=== PATIENT | male | born 1970 | race Caucasian/White ===

== ENCOUNTER 2023-12-03 07:33 | Outpatient (OUT) | payer BC, SELFPAY ==
--- NOTE | 2023-12-03 10:07 | P.STRESS_ITS ---
Stress Test Stress Test Requesting physician: ELPIDIO GOMEZ Procedure: Exercise stress test General Information: Reason for Stress Test: Fatigue Cardiac History and Risk Factors: Father had MA, mother had afib Resting 12 - Lead Electrocardiogram: Rate & rhythm: Normal sinus at a rate of 77. [place]: Normal T-waves: Flattened in aVL ST-segments: Normal Stress Test: Protocol: Bill protocol was followed. Exercise capacity: Good exercise capacity. Total exercise time of 7 minutes 35 seconds reached Bill stage 3 at 3.4MPH, 14% grade, & 10.1 METs. Blood pressure: Initial: 124/68, Maximum: 160/82, Recovery: 122/76 Rate & rhythm: Patient remained in normal rhythm during the exercise and recovery portions of the study.? The maximum heart rate was 146, which was 88% of the maximum predicted heart rate 165. ST-segments & T-waves: At peak exercise and into the initial recovery period, there was up to 1mm ST segment depression in lead V3 and ~0.5mm in V4 Patient response/symptoms: There were no symptoms similar to the chief complaint. Interpretation: This is an abnormal exercise stress test based on ST segment depression in leads V3 & V4. No reproducible symptoms. Dumont Treadmill Score is 2.6 which is a moderate risk. Clinical correlation required.
== END 2023-12-03 07:34 | disposition home or self-care (01) ==
LOC: CARD 07:33
PROVIDERS: PCP Family Medicine; Visit Provider Family Medicine
DX: R53.83 Other fatigue (principal); Z82.49 Family history of ischemic heart disease and other diseases of the circulatory system
CPT/HCPCS: 93017

== ENCOUNTER 2024-10-12 08:25 | Outpatient (OUT) | payer BC, SELFPAY ==
--- NOTE | 2024-10-12 | XR_ITS ---
The [address] [address] Patient Name: NICHOLE BARILLAS MRN: [id number] date: 1970 Sex: M Assigned Patient Location: Current Patient Location: Accession/Order Number: [id number] Exam Date: 10/12/2024 08:26 Report Date: 10/13/2024 06:58 At the request of: AGNES CABRERA Procedure: XR shoulder LT min 2V PROCEDURE: XR shoulder LT min 2V HISTORY: LEFT SHOULDER PAIN COMPARISON: None. FINDINGS: BONES:No fracture, acute abnormality, bone lesion, or significant arthropathy. SOFT TISSUES:No visible soft tissue swelling. EFFUSION:None visible. OTHER: Negative. XR/XR shoulder LT min 2V IMPRESSION: 1. No acute abnormality or significant degenerative changes. 2. No appreciable bone lesion. Electronically authenticated by: AGNES GERONIMO Date: 10/13/2024 06:58
--- OUTSIDE RECORDS SUMMARY | 2024-10-12 08:35 | XMS_ITS | CCD ---
Author Organization [facility] Care Team Providers Care Winery Cellar Hand Name Role Phone ERYN, DR ABBI Camarena Admitting Unavailable DEMPSEY, DR ABBI Camarena Attending Unavailable DEMPSEY, DR ABBI Camarena Consulting Unavailable DEMPSEY, DR ABBI Camarena Primary Care Unavailable DEMPSEY, DR ABBI Camarena Consulting Unavailable DEMPSEY, DR ABBI Camarena Admitting Unavailable DEMPSEY, DR ABBI Camarena Attending Unavailable DEMPSEY, DR ABBI Camarena Primary Care Unavailable NEFCYKITA Consulting Unavailable DEMPSEY, DR ABBI Camarena Admitting Unavailable DEMPSEY, DR ABBI Camarena Attending Unavailable DEMPSEY, DR ABBI Camarena Consulting Unavailable DEMPSEY, DR ABBI Camarena Primary Care Unavailable DEMPSEY, DR ABBI Camarena Primary Care Unavailable DEMPSEY, DR ABBI Camarena Attending Unavailable DEMPSEY, DR ABBI Camarena Admitting Unavailable DEMPSEY, DR ABBI Camarena Consulting Unavailable WEST, DR BEN Vazquez Consulting Unavailable DEMPSEY, DR ABBI Camarena Primary Care Unavailable DEMPSEY, DR ABBI Camarena Attending Unavailable DEMPSEY, DR ABBI Camarena Admitting Unavailable DEMPSEY, DR ABBI Camarena Consulting Unavailable ZIEBER, DR LORNE Patel Consulting Unavailable DEMPSEY, DR ABBI Camarena Primary Care Unavailable VALDEMAR KING Admitting Unavailable Lorne Go Consulting Unavailable VALDEMAR KING Attending Unavailable VALDEMAR KING Consulting Unavailable DEMPSEY, DR ABBI Camarena Attending Unavailable DEMPSEY, DR ABBI Camarena Admitting Unavailable DEMPSEY, DR ABBI Camarena Consulting Unavailable DEMPSEY, DR ABBI Camarena Primary Care Unavailable DEMPSEY, DR ABBI Camarena Admitting Unavailable DEMPSEY, DR ABBI Camarena Attending Unavailable DEMPSEY, DR ABBI Camarena Consulting Unavailable ERYN, DR ABBI Camarena Primary Care Unavailable MD Abbi Dempsey Primary Care Provider MD Ortega Cabrera Attending Provider [phone] Ortega Cabrera Attending Unavailable Ortega Cabrera Admitting Unavailable Abbi Dempsey Primary Care Unavailable Zach Hannah. Primary Care Physician [phone] Nina Lerma Unavailable MICHELLE POOL Attending Unavailable MICHELLE POOL Attending Unavailable Zach Hannah Attending Unavailable NONE, XXXX Referring Unavailable Miguel Wells Admitting UnavailMiguel Boateng Attending Unavaila Zach Montano Referring Unavailable Miguel Wells Attending Miguel Warren Admitting UnavailMiguel Boateng Consulting Miguel Warren Attending Miguel Warren Referring UnavailMD Miguel Boateng Consulting Unava ilable Miguel Wells Consulting Unavaila Zach Montano Admitting Unavailable Zach Hannah Attending Unavailable Zach Hannah Attending Unavailable Zach Hannah Attending Unavailable Zach Hannah Attending Unavailable Zach Hannah Attending Unavailable Zach Hannah Admitting Unavailable Zach Hannah Attending Unavailable Medications Current Medications Medication Drug Class(es) Dates Sig (Normalized) Sig (Original) ProAir (6 sources) beta2-Adrenergic Agonist Start: 03-25-2023 take 2 puff(s) by inhalation every four hours ProAir HFA 2 puff(s), Inhalation, q4hr, Refill(s) 0 Start Date: 03/25/23 Status: Ordered diclofenac potassium 25 mg oral capsule (1 source) Nonsteroidal Anti-inflammatory Drug Start: 08-03-2024 take 1 capsule by mouth four times daily as needed for pain diclofenac potassium 25 mg oral capsule 25 mg = 1 cap(s), Oral, QID, PRN for pain, # 40 cap(s), Refills(s) 0, Pharmacy: [facility], 193, cm, 08/03/24 7:21:00 EDT, Height/Length Dosing, 126, kg, 08/03/24 7:21:00 EDT, Weight Dosing Start Date: 08/03/24 Status: Ordered Dosakap (3 sources) Start: 10-24-2023 Dosakap Dosakap, See Instructions, 90 EA, 0, Take one a day, [facility], Supply, 193, cm, 10/24/23 7:31:00 EST, Height/Length Dosing, 124.9, kg, 10/24/23 7:31:00 EST, Weight Dosing Start Date: 10/24/23 Status: Ordered fluticasone propionate 0.093 mg/actuat metered dose nasal spray (9 sources) Corticosteroid Start: 04-25-2023 take 1 spray(s) nasal route twice daily Xhance 93 mcg/inh nasal spray 1 spray(s), Nasal, BID, Refill(s) 0, each nostril Start Date: 04/25/23 Status: Ordered Start: 03-25-2023 fluticasone Na cheyenne 0.05 mg/inh Sargeant 2 spray(s), Nasal, Daily, 16 gram, Refill(s) 0, each nostril Start Date: 03/25/23 Status: Ordered Start: 03-08-2023 Fluticasone Pr opionate (Xhance) 93 mcg/actuation aerosol breath activated Active 1 SPRAY INTRANASAL Twice daily March 08, 2023 12:00am Start: 02-23-2022 End: 03-08-2023 Fluticasone Propionate Disco ntinued 2 SPRAY INTRANASAL Twice daily February 23, 2022 12:00am March 08, 2023 10:05am take 1 spray(s) nasa l route once daily Fluticasone Propionate 50 MCG/ACT 1 spray in each nostril Nasally Once a day Active Completed/Discontinued Medications Medication Drug Class(es) Dates Sig (Normalized) Sig (Original) triamcinolone acetonide 40 mg/ml injectable suspension (2 sources) Corticosteroid Start: 12-10-2023 Kenalog-40 Nov, 20 mg Problems Active Problems Problem Classification Problem Date Documented Da te Episodic/Chronic Abdominal hernia (6 sources) Hiatal hernia 03-25-2023 Episodic Asthma (6 sources) Asthma 03-25-2023 Chronic Chronic obstructive pulmonary disease and bronchiectasis (1 source) Bronchitis, not specified as acute or chronic; Translations: [BRONCHITIS NOT SPEC ACUTE/CHRON] Onset: 07-27-2022 Episodic Esophageal disorders (8 sources) Lower esophageal ring; Translations: [Esophageal obstruction] 02-23-2022 Chronic Malaise and fatigue (7 sources) Other fatigue; Translations: [Fatigue] Onset: 02-14-2022 03-25-2023 Episodic Nutritional deficiencies (4 sources) Vitamin D deficiency 04-25-2023 Chronic Other connective tissue disease (1 source) Trigger finger, left middle finger Episodic Other connective tissue disease (1 source) Trigger finger, left ring finger Episodic Other connective tissue disease (3 sources) Prepatellar bursitis 01-27-2024 Episodic Other endocrine disorders (3 sources) Male hypogonadism 03-25-2023 Chronic Other gastrointestinal disorders (1 source) Dysphagia; Translations: [Dysphagia, unspecified] Episodic Other lower respiratory disease (4 sources) Shortness of breath; Translations: [SHORTNESS OF BREATH] Onset: 06-19-2022 Episodic Other lower respiratory disease (1 source) Other disorders of lung; Translations: [OTHER DISORDERS OF LUNG] Onset: 07-27-2022 Episodic Other lower respiratory disease (1 source) Postviral cough 10-24-2023 Episodic Other non-traumatic joint disorders (4 sources) Polyarthritis, unspecified; Translations: [POLYARTHRITIS UNSPECIFIED] Onset: 02-09-2022 Chronic Other non-traumatic joint disorders (6 sources) Polyarthropathy 03-25-2023 Chronic Other screening for suspected conditions (not mental disorders or infectious disease) (2 sources) Abnormal results of cardiovascular function studies; Translations: [Abnormal result of other cardiovascular function study] Episodic Other upper respiratory disease (6 sources) Polyp of nasal cavity and/or nasal sinus 03-25-2023 Episodic Other upper respiratory infections (5 sources) Chronic pansinusitis; Translations: [Chronic sinusitis, unspecified] Onset: 09-14-2022 Chronic Residual codes; unclassified (5 sources) Obstructive sleep apnea syndrome; Translations: [Obstructive sleep apnea (adult) (pediatric)] 10-24-2023 Chronic Residual codes; unclassified (4 sources) Insomnia 04-25-2023 Episodic Spondylosis; intervertebral disc disorders; other back problems (6 sources) Nerve root disorder; Translations: [Radiculopathy, site unspecified] 03-25-2023 Episodic Unclassified (4 sources) COUGH, UNSPECIFIED; Translations: [COUGH, UNSPECIFIED] Onset: 06-19-2022 Unclassified (3 sources) CONTACT W/AND (SUSP) EXPOS COVID-19; Translations: [CONTACT W/AND (SUSP) EXPOS COVID-19] Onset: 07-19-2022 Unclassified (6 sources) Pain of knee region 03-25-2023 Unclassified (2 sources) Patient encounter status 08-03-2024 Viral infection (1 source) COVID-19; Translations: [COVID-19] Onset: 07-27-2022 Past or Other Problems Problem Classification Problem Date Documented Da te Episodic/Chronic Other lower respiratory disease (1 source) Wheezing; Translations: [WHEEZING] Onset: 06-19-2022 Episodic Unclassified (1 source) COUGH, UNSPECIFIED; Translations: [COUGH, UNSPECIFIED] Onset: 09-11-2022 Unclassified (1 source) CONTACT W/AND (SUSP) EXPOS COVID-19; Translations: [CONTACT W/AND (SUSP) EXPOS COVID-19] Onset: 07-20-2022 Results Test Name Value Interpretation Reference Range Facility Ambulatory Visit Summaryon 0 08-03-2024 Ambulatory Visit Summary Ambulatory Visit Summary NICHOLE BARILLAS :1970 Visit Date:08/03/2024 Ambulatory Visit Instructions Your Diagnosis Physical exam Knee pain, right Gastroesophageal reflux disease without esophagitis Vitamin D deficiency Prostate cancer screening Your Care Team Attending Physician - Zach Hannah MD Primary Care Physician - Zach Hannah MD This Is Your Medications List Non-Formulary Medication (Dosakap) albuterol (ProAir HFA) fluticasone nasal (Xhance 93 mcg/inh nasal spray) Procedures Performed Colonoscopy, EGD - Esophagogastroduodeno scopy, Right hand, Sinus. Discharge Vitals Temperature (Oral) 36.7 ?C Heart Rate (Peripheral) 74 Respiratory Rate 20 Blood Pressure 124/82 Height 193 cm Height 76 in Weight 126.0 kg Weight 277.2 lb BMI 33.83 Medications What How Much When Instructions Unchanged albuterol (ProAir HFA) 2 Puffs Inhalation Every 4 hours Unchanged fluticasone nasal (Xhance 93 mcg/ inh nasal spray) 1 Sprays Nasal Inhalation 2 times a day each nostril Unchanged Non-Formulary Medication (Dosakap) See instructions Take one a day Allergies No Known Allergies Problems Ongoing - Any problem that you are currently receiving treatment for. Asthma Fatigue Gastroesophageal reflux disease without esophagitis Hiatal hernia Insomnia due to stress Knee pain, right Nasal polyp ARYAN (obstructive sleep apnea) Physical exam Polyarthritis Prepatellar bursitis Prostate cancer screening Radiculopathy Vitamin D deficiency Patient Survey You may receive a survey via text or e-mail asking about your office visit. Please share your experience with us by completing your survey. We appreciate your feedback and thank you for choosing us for your care. Normal [facility] CBC w/ Auto Diffon 4 Basophils/100 WBC (Bld) 0.8 % Normal 0.0-2.0 [facility] Comment on above: Performed By: #### 2 [id number] #### [facility] [address] [place] [address] Basophils/Leukocytes Auto (Bld) [Pure # fraction] 0.0 E9/L Normal 0.0-0.2 [facility] Comment on above: Performed By: #### 2 [id number] #### [facility] [address] [place] [address] Eosinophils (Bld) [#/Vol] 0.3 E9/L Normal 0.0-0.5 [facility] Comment on above: Performed By: #### 2 [id number] #### [facility] [address] [place] [address] Eosinophils/100 WBC (Bld) 6.7 % Normal 0.0-8.0 [facility] Comment on above: Performed By: #### 2 [id number] #### [facility] [address] [place] [address] Erythrocyte distribution width (RBC) [Ratio] 13.2 % Normal 10.9-14.2 [facility] Comment on above: Performed By: #### 2 [id number] #### [facility] [address] [place] [address] Hematocrit (Bld) [Volume fraction] 44.7 % Normal 37.7-49.0 [facility] Comment on above: Performed By: #### 2 [id number] #### [facility] [address] [place] [address] Hemoglobin (Bld) [Mass/Vol] 14.7 g/dL Normal 13.5-17.5 [facility] Comment on above: Performed By: #### 2 [id number] #### [facility] [address] [place] [address] Lymphocytes (Bld) [#/Vol] 1.8 E9/L Normal 1.0-4.0 [facility] Comment on above: Performed By: #### 2 [id number] #### [facility] [address] [place] [address] Lymphocytes/100 WBC (Bld) 38.6 % Normal 14.0-50.0 [facility] Comment on above: Performed By: #### 2 [id number] #### [facility] [address] [place] [address] MCH (RBC) [Entitic mass] 29.8 pg Normal 27.0-34.0 [facility] Comment on above: Performed By: #### 2 [id number] #### [facility] [address] [place] [address] MCHC (RBC) [Mass/Vol] 32.9 g/dL Normal 31.4-36.0 [facility] Comment on above: Performed By: #### 2 [id number] #### [facility] [address] [place] [address] MCV (RBC) [Entitic vol] 90.6 fL Normal 80.0-100.0 [facility] Comment on above: Performed By: #### 2 [id number] #### [facility] [address] [place] [address] Monocytes (Bld) [#/Vol] 0.4 E9/L Normal 0.2-1.0 [facility] Comment on above: Performed By: #### 2 [id number] #### [facility] [address] [place] [address] Neutrophils (Bld) [#/Vol] 2.0 E9/L Normal 2.0-7.5 [facility] Comment on above: Performed By: #### 2 [id number] #### [facility] [address] [place] [address] Neutrophils/100 WBC (Bld) 44.3 % Normal 36.0-75.0 [facility] Comment on above: Performed By: #### 2 [id number] #### [facility] [address] [place] [address] Platelet mean volume (Bld) [Entitic vol] 9.7 fL Normal 6.4-10.8 [facility] Comment on above: Performed By: #### 2 [id number] #### [facility] [address] [place] [address] Platelets (Bld) [#/Vol] 200.0 E9/L Normal 150.0-500.0 [facility] Comment on above: Performed By: #### 2 [id number] #### [facility] [address] [place] [address] RBC (Bld) [#/Vol] 4.9 E12/L Normal 4.3-5.9 [facility] Comment on above: Performed By: #### 2 [id number] #### [facility] [address] [place] [address] WBC corrected for nucl RBC Auto (Bld) [#/Vol] 4.6 E9/L Normal 4.0-11.0 [facility] Comment on above: Performed By: #### 2 [id number] #### [facility] [address] [place] [address] CHEMISTRYOrdered By: SYSTEM SYSTEM on 08-03-2024 Albumin [Mass/Vol] 4.1 g/dL Normal 3.3 - 5.0 gm/dL [facility] Albumin/Globulin [Mass ratio] 1.2 {ratio} Normal 1.1 - 2.2 [facility] ALP [Catalytic activity/Vol] 49 [iU]/d Normal 21 - 98 Int._Unit/L [facility] ALT No additional P-5'-P [Catalytic activity/Vol] 15 [iU]/d Normal 6 - 46 Int._Unit/L [facility] Anion gap [Moles/Vol] 8 mmol/L Normal 6 - 16 mEq/L R [facility] AST [Catalytic activity/Vol] 14 [iU]/d Normal 5 - 43 Int._Unit/L [facility] Bilirubin [Mass/Vol] 0.5 mg/dL Normal 0.0 - 1 .1 mg/dL [facility] Calcium [Mass/Vol] 9.3 mg/dL Normal 8.9 - 11. 1 mg/dL [facility] Chloride [Moles/Vol] 105 mmol/L Normal 101 - 1 11 mmol/L [facility] Cholesterol [Mass/Vol] 170 mg/dL Normal 120 - 200 mg/dL [facility] Cholesterol in HDL [Mass/Vol] 39 mg/dL Invalid Interpretation Code [facility] Comment on above: Result Comment: '>= 60 LOW RISK' '<= 40 HIGH RISK' Cholesterol in LDL [Mass/Vol] 128 mg/dL Normal <=129mg/dL [facility] Cholesterol in VLDL [Mass/Vol] 23 mg/dL Normal 7 - 40 mg/dL [facility] CO2 [Moles/Vol] 30 mmol/L Normal 21 - 31 mmol/L [facility] Creatinine [Mass/Vol] 0.9 mg/dL Normal 0.5 - 1.3 mg/dL [facility] eGFR 100 mL/min/1.73 m2 Normal >=59mL/mi n/1 .73 m2 [facility] Globulin (S) [Mass/Vol] 3.3 g/dL Normal 1.4 - 4.0 gm/dL [facility] Glucose [Mass/Vol] 103 mg/dL Normal 55 - 199 mg/dL [facility] Potassium [Moles/Vol] 4.3 mmol/L Normal 3.5 - 5.3 mmol/L [facility] Prostate specific Ag [Mass/Vol] 0.6 ng/mL Normal 0.1 - 3.5 ng/mL [facility] Comment on above: Interpretive Data: T he concentration of PSA determined by different manufacturers can vary due to differences in assay methods and reagent specificity. Values obtained from different assay methods cannot be used interchangeably. The methodology used for this result was chemiluminescence using [employer]'s Access [employer] PSA reagent. Protein [Mass/Vol] 7.4 g/dL Normal 6.0 - 7.8 gm/dL [facility] Sodium [Moles/Vol] 139 mmol/L Normal 135 - 145 mmol/L [facility] Triglyceride [Mass/Vol] 113 mg/dL Normal <=149mg/dL [facility] Urea nitrogen [Mass/Vol] 11 mg/dL Normal 5 - 21 mg/dL [facility] Urea nitrogen/Creatinine [Mass ratio] 12 mg/mg Normal 10 - 20 [facility] CMPon 08-03-2024 Albumin [Mass/Vol] 4.1 g/dL Normal 3.3-5.0 [facility] Comment on above: Performed By: #### 2 [id number] #### [facility] [address] [place] [address] Albumin/Globulin (S) [Mass conc ratio] 1.2 Normal 1.1-2.2 [facility] Comment on above: Performed By: #### 2 [id number] #### [facility] [address] [place] [address] ALP [Catalytic activity/Vol] 49 Int._Unit/L Normal 21-98 [facility] Comment on above: Performed By: #### 2 [id number] #### [facility] [address] [place] [address] ALT No additional P-5'-P [Catalytic activity/Vol] 15 Int._Unit/L Normal 6-46 [facility] Comment on above: Performed By: #### 2 [id number] #### [facility] [address] [place] [address] Anion gap [Moles/Vol] 8 mmol/L Normal 6-16 [facility] Comment on above: Performed By: #### 2 [id number] #### [facility] [address] [place] [address] AST [Catalytic activity/Vol] 14 Int._Unit/L Normal 5-43 [facility] Comment on above: Performed By: #### 2 [id number] #### [facility] [address] [place] [address] Bilirubin [Mass/Vol] 0.5 mg/dL Normal 0.0-1.1 [facility] Comment on above: Performed By: #### 2 [id number] #### [facility] [address] [place] [address] Calcium [Mass/Vol] 9.3 mg/dL Normal 8.9-11.1 [facility] Comment on above: Performed By: #### 2 [id number] #### [facility] [address] [place] [address] Chloride [Moles/Vol] 105 mmol/L Normal 101-111 [facility] Comment on above: Performed By: #### 2 250305 #### [facility] [address] [place] [address] CO2 [Moles/Vol] 30 mmol/L Normal 21-31 [facility] Comment on above: Performed By: #### 2 [id number] #### [facility] [address] [place] [address] Creatinine [Mass/Vol] 0.9 mg/dL Normal 0.5-1.3 [facility] Comment on above: Performed By: #### 2 [id number] #### [facility] [address] [place] [address] Globulin (S) [Mass/Vol] 3.3 g/dL Normal 1.4-4.0 [facility] Comment on above: Performed By: #### 2 [id number] #### [facility] [address] [place] [address] Glucose [Mass/Vol] 103 mg/dL Normal 55-199 [facility] Comment on above: Performed By: #### 2 192503 #### [facility] [address] [place] [address] Potassium [Moles/Vol] 4.3 mmol/L Normal 3.5-5.3 [facility] Comment on above: Performed By: #### 2 [id number] #### [facility] [address] [place] [address] Protein [Mass/Vol] 7.4 g/dL Normal 6.0-7.8 [facility] Comment on above: Performed By: #### 2 [id number] #### [facility] [address] [place] [address] Sodium [Moles/Vol] 139 mmol/L Normal 135-145 [facility] Comment on above: Performed By: #### 2 [id number] #### [facility] [address] [place] [address] Urea nitrogen [Mass/Vol] 11 mg/dL Normal 5-21 [facility] Comment on above: Performed By: #### 2 299123 #### [facility] [address] [place] [address] Urea nitrogen/Creatinine [Mass ratio] 12 No Units Normal 10-20 [facility] Comment on above: Performed By: #### 2 [id number] #### [facility] [address] [place] [address] Family Medicine Office/Clini c Noteon 08-03-2024 Family Medicine Office/Clinic Note Family Medicine Office/Clinic Note HPI Staff Nichole (New) is a 54 year old male presenting for wellness PE and labs Health Maintenance: Colonoscopy: 2022 PSA: No qualifying data available. Last Labs: 03/26/23 question/concerns; Would like a rx for diclofenac had in past with Dr. Dempsey History of Present Illness - Here for CPE and labs. - NO issues today. - See staff HPI. Review of Systems PHQ Score Initial Depression Screen Score: 0 SCORE Physical Exam Vitals & Measurements T: 36.7 ?C(Oral) HR: 74(Peripheral) RR: 20 BP: 124/82 SpO2: 97% HT: 76 in HT: 193 cm WT: 126.0 kg WT: 277.2 lb BMI: 33.83 General: alert, no acute distress ENMT: oral mucosa moist, Cardiovascular: regular rate and rhythm, normal peripheral perfusion Respiratory: Lungs CTA, respirations non labored Extremities: no deformity, no trauma Neurological: oriented x 4, LOC appropriate for age, CN II-XII intact, motor strength equal & normal bilaterally, speech normal Abdomen: Soft, Nontender, Non-distended, + BS Assessment/Plan 1. Physical exam (Z00.00: Encounter for general adult medical examination without abnormal findings) Anticipatory guidance given. Discussed diet and exercise. Discussed immunizations. Ordered: CBC w/ Auto Diff Comprehensive Metabolic Panel Lipid Panel PSA Screen, Total 2. Knee pain, right (M25.561: Pain in right knee) Will add diclofenac. - Follow up PRN Ordered: CBC w/ Auto Diff Comprehensive Metabolic Panel Lipid Panel PSA Screen, Total 3. Gastroesophageal reflux disease without esophagitis (K21.9: Gastro-esophageal reflux disease without esophagitis) - PPI PRN Ordered: CBC w/ Auto Diff Comprehensive Metabolic Panel Lipid Panel PSA Screen, Total 4. Vitamin D deficiency (E55.9: Vitamin D deficiency, unspecified) - No issues at this time. Will recheck if fatigue presents again Ordered: CBC w/ Auto Diff Comprehensive Metabolic Panel Lipid Panel PSA Screen, Total 5. Prostate cancer screening (Z12.5: Encounter for screening for malignant neoplasm of prostate) - Ordered Ordered: CBC w/ Auto Diff Comprehensive Metabolic Panel Lipid Panel PSA Screen, Total Orders: diclofenac, 100 mg = 1 tab(s), Oral, Daily, PRN for arthritis, # 30 tab(s), Refills(s) 0, Pharmacy: [facility], 193, cm, 08/03/24 7:21:00 EDT, Height/Length Dosing, 126, kg, 08/03/24 7:21:00 EDT, Weight Dosing Follow-up No qualifying data available Patient Education Acute Knee Pain, Adult Problem List/Past Medical History Ongoing Asthma Fatigue Gastroesophageal reflux disease without esophagitis Hiatal hernia Insomnia due to stress Knee pain, right Nasal polyp ARYAN (obstructive sleep apnea) Physical exam Polyarthritis Prepatellar bursitis Prostate cancer screening Radiculopathy Vitamin D deficiency Historical No qualifying data Procedure/Surgical History Colonoscopy, EGD - Esophagogastroduodeno scopy, Right hand, Sinus. Medications diclofenac sodium 100 mg ER Tab, 100 mg= 1 tab(s), Oral, Daily, PRN ProAir HFA, 2 puff(s), Inhalation, q4hr Xhance 93 mcg/inh nasal spray, 1 spray(s), Nasal, BID Allergies No Known Allergies Social History Substance Abuse - Denies Substance Abuse, 03/25/2023 Tobacco - Denies Tobacco Use, 01/24/2024 Never (less than 100 in lifetime) Tobacco Use:. Smokeless tobacco user within last 30 days Smokeless Tobacco Use:. Cigarettes, Household tobacco concerns: No., 08/03/2024 Family History Heart disease: Father. Rheumatoid arthritis: Father. Immunizations Vaccine Date Status Comments influenza virus vaccine, inactivated 10/24/2023 Given SARS-CoV-2 (COVID-19) [id number] 11/06/2022 Recorded 2023-03-25: TPV50 influenza virus vaccine, inactivated 10/25/2022 Recorded influenza virus vaccine, inactivated 10/24/2021 Recorded SARS-CoV-2 (COVID-19) mRNA BNT-162b2 vax 10/17/2021 Recorded 2023-03-25: TPV50 SARS-CoV-2 (COVID-19) mRNA BNT-162b2 vax 02/27/2021 Recorded SARS-CoV-2 (COVID-19) mRNA BNT-162b2 vax 02/06/2021 Recorded influenza virus vaccine, inactivated 08/08/2020 Recorded influenza virus vaccine, inactivated 09/10/2019 Recorded influenza virus vaccine, inactivated 08/30/2018 Recorded influenza virus vaccine, inactivated 09/25/2016 Recorded influenza virus vaccine, inactivated 10/10/2013 Recorded Normal [facility] Comment on above: Result Comment: Elec tronically Signed By: [place] SIMMS, Zach Ramseybr\Date and Time Signed: 08/03/24 07:41 EDT HEMATOLOGYOrdered By: SYSTEM SYSTEM on 08-03-2024 Basophils/100 WBC (Bld) 0.8 % Normal 0.0 - 2.0 % Remisol Heme Basophils/Leukocytes Auto (Bld) [Pure # fraction] 0.0 E9/L Normal 0.0 - 0.2 E9/L Remisol Heme Eosinophils (Bld) [#/Vol] 0.3 E9/L Normal 0.0 - 0.5 E9/L Remisol Heme Eosinophils/100 WBC (Bld) 6.7 % Normal 0.0 - 8.0 % Remisol Heme Erythrocyte distribution width (RBC) [Ratio] 13.2 % Normal 10.9 - 14.2 % Remisol Heme Hematocrit (Bld) [Volume fraction] 44.7 % Normal 37.7 - 49.0 % Remisol Heme Hemoglobin (Bld) [Mass/Vol] 14.7 g/dL Normal 13.5 - 17.5 gm/dL Remisol Heme Lymphocytes (Bld) [#/Vol] 1.8 E9/L Normal 1.0 - 4.0 E9/L Remisol Heme Lymphocytes/100 WBC (Bld) 38.6 % Normal 14.0 - 50.0 % Remisol Heme MCH (RBC) [Entitic mass] 29.8 pg Normal 27.0 - 34.0 pg Remisol Heme MCHC (RBC) [Mass/Vol] 32.9 g/dL Normal 31.4 - 36.0 gm/dL Remisol Heme MCV (RBC) [Entitic vol] 90.6 fL Normal 80.0 - 100.0 fL Remisol Heme Monocytes (Bld) [#/Vol] 0.4 E9/L Normal 0.2 - 1.0 E9/L Remisol Heme Monocytes/100 WBC (Bld) 9.6 % Normal 4.0 - 14.0 % Remisol Heme Neutrophils (Bld) [#/Vol] 2.0 E9/L Normal 2.0 - 7.5 E9/L Remisol Heme Neutrophils/100 WBC (Bld) 44.3 % Normal 36.0 - 75.0 % Remisol Heme Platelet mean volume (Bld) [Entitic vol] 9.7 fL Normal 6.4 - 10.8 fL Remisol Heme Platelets (Bld) [#/Vol] 200.0 E9/L Normal 150.0 - 500.0 E9/L Remisol Heme RBC (Bld) [#/Vol] 4.9 E12/L Normal 4.3 - 5.9 E12/L Remisol Heme WBC corrected for nucl RBC Auto (Bld) [#/Vol] 4.6 E9/L Normal 4.0 - 11.0 E9/L Remisol Heme Lipid Panelon 08-03-2024 Cholesterol [Mass/Vol] 170 mg/dL Normal 120-200 [facility] Comment on above: Performed By: #### [id number] #### [facility] [address] [place] [address] Cholesterol in HDL [Mass/Vol] 39 mg/dL Invalid Interpretation Code [facility] Comment on above: Result Comment: '>= 60 LOW RISK' '<= 40 HIGH RISK' Performed By: #### [id number] #### [facility] [address] [place] [address] Cholesterol in LDL [Mass/Vol] 128 mg/dL Normal <=129 [facility] Comment on above: Performed By: #### 2 [id number] #### [facility] [address] [place] [address] Cholesterol in VLDL [Mass/Vol] 23 mg/dL Normal 7-40 [facility] Comment on above: Performed By: #### 2 [id number] #### [facility] [address] [place] [address] Triglyceride [Mass/Vol] 113 mg/dL Normal <=149 [facility] Comment on above: Performed By: #### 2 [id number] #### [facility] [address] [place] [address] PSA Screen, Totalon 08-03-20 24 Prostate specific Ag [Mass/Vol] 0.6 ng/mL Normal 0.1-3.5 [facility] Comment on above: Result Comment: The concentration of PSA determined by different manufacturers can vary due to differences in assay methods and reagent specificity. Values obtained from different assay methods cannot be used interchangeably. The methodology used for this result was chemiluminescence using [employer]'s Access [employer] PSA reagent. Performed By: #### 1 [id number] #### [facility] [address] [place] [address] eGFRon 08-03-2024 eGFR 100 mL/min/1.73 m2 Normal >=59 [facility] Comment on above: Order Comment: Order added by Discern Expert. Performed By: #### 1 [id number] #### [facility] [address] [place] [address] Heart and Vascular Office/Cl inic Noteon 04-27-2024 Heart and Vascular Office/Clinic Note Chief Complaint 2 month follow up History of Present Illness Nichole Barillas is a 54-year-old male who presents for follow-up. The patient has not undergone any surgical interventions. He met with Dr. Mcintosh on Saturday. His cholesterol levels, which were marginally above the upper limit at 136 mg/dL, have slightly decreased to around 137 or 138 mg/dL. Although a fish oil supplement was recommended, due to the unavailability of [place] Department of Agriculture (USDA)-approved products, he is seeking alternative dietary management strategies. His low-density lipoprotein (LDL) cholesterol has been effectively controlled over several years; recent laboratory findings indicate a minimal increase of 1 or 2 points. He recognizes his obesity and confesses a fondness for certain foods. He is a nonsmoker. His father had his first bypass surgery in his mid 50's, but he was a smoker and had a different lifestyle. Review of Systems PHQ Score Initial Depression Screen Score: 0 SCORE Constitutional: no fever, no sweats, no weakness Skin: no rash, no lesions, no bruising/petechiae ENMT: no sore throat, no congestion, no hoarseness Respiratory: no shortness of breath, no cough, no orthopnea, no wheezing Cardiovascular: no chest pain, no palpitations, no edema Gastrointestinal: no nausea, no vomiting, no diarrhea, no GI bleeding Genitourinary: no anuria/oliguria no hematuria Musculoskeletal: no back pain, no trauma Neurologic: no headache, no dizziness, no numbness, no weakness Psychiatric: no sleeping problems, no irritability, no anxiety/depression. Heme/Lymph: no bleeding tendency, no bruising tendency Allergy/Immunologic: no recurrent infections, no impaired immunity Additional ROS info: Except as noted in the above Review of Systems and in the History of Present Illness all other systems have been reviewed and are negative or noncontributory Physical Exam Vitals & Measurements HR: 83(Peripheral) BP: 118/84 SpO2: 95% HT: 76 in HT: 193 cm WT: 126.4 kg WT: 278.08 lb BMI: 33.93 General: alert, no acute distress Skin: warm, dry intact Head: atraumatic, normocephalic Neck: trachea midline, no JVD, no bruit Eye: normal conjunctiva, sclera clear ENMT: oral mucosa moist Cardiovascular: regular rate and rhythm, no murmur, normal peripheral perfusion Respiratory: lungs CTA, respirations non labored Chest wall: no deformity. Gastrointestinal: soft, non-distended, no tenderness, no guarding. Back: no tenderness, normal ROM, normal alignment. Extremities: no edema, no deformity, no trauma Neurological: oriented x 4, LOC appropriate for age, sensation equal & normal bilaterally, speech normal Psychiatric: cooperative, affect appropriate for age, normal judgement, normal psychiatric thoughts. Assessment/Plan 1. Follow-up. His stress test and echocardiogram results are within normal limits. It was communicated that there is limited evidence-based rationale for fish oil supplementation, with Vascepa being an exception due to its specialized formulation and availability over the counter. The potential for conducting a coronary calcium score assessment was broached, eliciting his desire to discuss this option with his spouse. I advise against the routine use of supplements for this indication. Should an elevated coronary calcium score be identified, he would be prescribed aspirin and statins for management. Follow-up The patient is advised to follow up as necessary. ATTESTATION: Documentation services were performed after patient or guardian consented to allow [employer] to record this visit. [employer] document review specialist and provider reviewed before signing. CARMEN: Karla Dewitt Portions of this record may have been created with voice recognition artificial intelligence software, specifically [employer], [employer] and or [employer]. Substitutions may have occurred due to the inherent limitations of voice recognition and artificial intelligence software. Follow-up No qualifying data available Problem List/Past Medical History Ongoing Asthma Fatigue Gastroesophageal reflux disease without esophagitis Hiatal hernia Insomnia due to stress Knee pain, right Nasal polyp ARYAN (obstructive sleep apnea) Polyarthritis Prepatellar bursitis Radiculopathy Vitamin D deficiency Historical No qualifying data Procedure/Surgical History Colonoscopy, EGD - Esophagogastroduodeno scopy, Right hand, Sinus. Medications Dosakap, See Instructions ProAir HFA, 2 puff(s), Inhalation, q4hr Xhance 93 mcg/inh nasal spray, 1 spray(s), Nasal, BID Allergies No Known Allergies Social History Substance Abuse - Denies Substance Abuse, 03/25/2023 Tobacco - Denies Tobacco Use, 01/24/2024 Never (less than 100 in lifetime) Tobacco Use:. Smokeless tobacco user within last 30 days Smokeless Tobacco Use:. Cigarettes, Household tobacco concerns: No., 04/22/2024 Family History (more content not included)... Normal [facility] Comment on above: Result Comment: Elec tronically Signed By: Russell SIMMS, Miguel Swan\.br\Date and Time Signed: 04/27/24 10:09 EDT\.br\Electronically Co-Signed By: Monse Edward\.br\Date and Time Co-Signed: 04/22/24 17:13 EDT Consent for Treatmenton 03-26 Consent for Treatment [id number] .00TIFF Normal [facility] Physician Orderon 04-22-2024 Physician Order [id number] #1.00TIFF Normal [facility] Heart and Vascular Office/Cl inic Noteon 02-22-2024 Heart and Vascular Office/Clinic Note Chief Complaint New Patient- Establish care Abnormal stress test History of Present Illness Nichole Barillas is a male who presents for evaluation of abnormal stress test. An adult female accompanies him. That patient felt tired for 1 to 1.5 years where he has no energy or desire to do things he usually does. He had undergone blood test and other tests, which all came back normal. His stress test was abnormal even though he went pass their desired limit of 140. He went up to 149, feeling good and no chest pains but 3 days after, his result had abnormalities. He denies any chest pain or tightness. He has dyspnea that might be due to him being overweight. He thinks the pain he occasionally feels is muscular pain or ache since he used to play a lot of sports. He usually experiences it in the evening and would manifest even without exertion. He would occasionally feel a burning sensation and sharp pain that would last 5 to 7 minutes and wonder if it was a warning sign. He was previously treated for low testosterone by Dr. Dempsey when he was in his late 30s and 40s. He was sent to [facility] to an broomcorn seeder to check his pituitary gland. He used to get injections every 2 weeks and used a topical cream, which did increase his sexual drive. He has noticed that his strength has declined in the last 5 to 7 years. Carrying things feels heavier now. His father had undergone a bypass surgery. Review of Systems PHQ Score Initial Depression Screen Score: 0 SCORE Constitutional: no fever, no sweats, no weakness Skin: no rash, no lesions, no bruising/petechiae ENMT: no sore throat, no congestion, no hoarseness Respiratory: no shortness of breath, no cough, no orthopnea, no wheezing Cardiovascular: no chest pain, no palpitations, no edema Gastrointestinal: no nausea, no vomiting, no diarrhea, no GI bleeding Genitourinary: no anuria/oliguria no hematuria Musculoskeletal: no back pain, no trauma Neurologic: no headache, no dizziness, no numbness, no weakness Psychiatric: no sleeping problems, no irritability, no anxiety/depression. Heme/Lymph: no bleeding tendency, no bruising tendency Allergy/Immunologic: no recurrent infections, no impaired immunity Additional ROS info: Except as noted in the above Review of Systems and in the History of Present Illness all other systems have been reviewed and are negative or noncontributory Physical Exam Vitals & Measurements HR: 76(Peripheral) BP: 130/80 SpO2: 94% HT: 76 in HT: 193 cm WT: 125.0 kg WT: 275 lb BMI: 33.56 General: alert, no acute distress Skin: warm, dry intact Head: atraumatic, normocephalic Neck: trachea midline, no JVD, no bruit Eye: normal conjunctiva, sclera clear ENMT: oral mucosa moist Cardiovascular: regular rate and rhythm, no murmur, normal peripheral perfusion Respiratory: lungs CTA, respirations non labored Chest wall: no deformity. Gastrointestinal: soft, non-distended, no tenderness, no guarding. Back: no tenderness, normal ROM, normal alignment. Extremities: no edema, no deformity, no trauma Neurological: oriented x 4, LOC appropriate for age, sensation equal & normal bilaterally, speech normal Psychiatric: cooperative, affect appropriate for age, normal judgement, normal psychiatric thoughts. Assessment/Plan 1. Abnormal Stress ECG Nichole Barillas is a male with an abnormal stress test. We reviewed and discussed his stress test results. He does not have typical chest pain type symptoms. I will get a nuclear stress test and an echocardiogram. I also discussed that his low testosterone does not affect his stress test. Follow-up The patient will follow up in 2 months. Portions of this record may have been created with voice recognition artificial intelligence software, specifically [employer], [employer] and or [employer]. Substitutions may have occurred due to the inherent limitations of voice recognition and artificial intelligence software. ATTESTATION: Documentation services were performed after patient or guardian consented to allow [employer] to record this visit. CARMEN document review specialist and provider reviewed before signing. CARMEN: Phoebe Johanna Oseo. Follow-up No qualifying data available Problem List/Past Medical History Ongoing Asthma Fatigue Gastroesophageal reflux disease without esophagitis Hiatal hernia Hypogonadism in male Insomnia due to stress Knee pain, right Nasal polyp ARYAN (obstructive sleep apnea) Polyarthritis Post-viral cough syndrome Radiculopathy Vitamin D deficiency Historical No qualifying data Procedure/Surgical History Colonoscopy, EGD - Esophagogastroduodeno scopy, Right hand, Sinus. Medications Dosakap, See Instructions ProAir HFA, 2 puff(s), Inhalation, q4hr, Not taking Xhance 93 mcg/inh nasal spray, 1 spray(s), Nasal, BID Allergies No Known Allergies Social History Substance Abuse - Denies Substance Abuse, 03/25/2023 Tobacco - D (more content not included)... Normal [facility] Comment on above: Result Comment: Elec tronically Signed By: Russell SIMMS, Miguel Swan\.br\Date and Time Signed: 02/22/24 12:59 EDT\.br\Electronically Co-Signed By: Monse Edward\.br\Date and Time Co-Signed: 01/24/24 13:57 EST NM Myocardial Spect Rest/Str ess 2 Dayon 02-20-2024 NM Myocardial Spect Rest/Stress 2 Day Exam Date/Time: 02/12/2024 10:16 EDT Reason for Exam: [id number];Other (please specify) Report PROCEDURE: TREADMILL EXERCISE STRESS TEST 2 DAY INDICATIONS: Abnormal stress electrocardiogram. PROCEDURE DETAILS: The patient was stressed according to the Bill Protocol. Exercised for 9 minutes 16 seconds achieving a heart rate of 157 beats per minute which was 95% maximal age predicted heart rate and 10.5 METS. During peak stress there were horizontal and lateral ST depression. There were no arrhythmias. Recovery phase was normal. There was no chest pain. The patient received 30.0 millicuries of Cardiolite for rest images and 28.7 millicuries of Cardiolite for stress images. Review of raw images demonstrated some soft tissue attenuation due to large body habitus. There was also some diaphragmatic attenuation. FINDINGS: Uptake of the tracer was homogeneous with no identifiable ischemia or infarction. The TID ratio was 1.05. The ejection fraction was 53%. End diastolic volume was 149 mL. CONCLUSIONS: Negative treadmill nuclear stress test, overall low risk stress. FINAL REPORT Signed (Electronic Signature): 02/20/2024 6:40 am Signed by: Miguel Wells MD Transcribed by: ronak Technologist: ARIADNE Technical Comments Rest Dose (mCi Tc99m Cardiolite): 30.0 Normal [facility] Stress EKG Tracingson 2023 Stress EKG Tracings [id number]# 1.00TIFF Normal [facility] Consent for Treatmenton 01-24 Consent for Treatment [id number]#1 .00TIFF Normal [facility] Consultation Noteon 01-31-20 24 Consultation Note [id number]#1 .00TIFF [facility] Ambulatory Visit Summaryon 0 01-27-2024 Ambulatory Visit Summary NICHOLE BARILLAS :1970 Visit Date:01/27/2024 Ambulatory Visit Instructions Your Diagnosis Prepatellar bursitis Fatigue Vitamin D deficiency BMI 34.0-34.9,adult Class 1 obesity due to excess calories in adult Smokeless tobacco use ARYAN (obstructive sleep apnea) Insomnia due to stress Your Care Team Attending Physician - Zach Hannah MD Primary Care Physician - Zach Hannah MD This Is Your Medications List Non-Formulary Medication (Dosakap) albuterol (ProAir HFA) fluticasone nasal (Xhance 93 mcg/inh nasal spray) Procedures Performed Colonoscopy, EGD - Esophagogastroduodeno scopy, Right hand, Sinus. Discharge Vitals Temperature (Oral) 36.7 ?C Heart Rate (Peripheral) 68 Respiratory Rate 16 Blood Pressure 122/80 Height 193 cm Height 76 in Weight 127.2 kg Weight 279.84 lb BMI 34.15 What to do next Scheduled Follow-Up Appointments Saturday 3:45 PM EDT With: Miguel Wells MD Where: Cardiology Clinic Saturday 7:15 AM EDT With: Zach Hannah MD Where: [facility] [place] Normal [facility] Electrocardiogram - 12 leado n 01-27-2024 Electrocardiogram - 12 lead [id number]# 1.00TIFF Normal [facility] Office/Clini c Noteon 01-27-2024 [facility] Office/Clinic Note HPI Staff Nichole is a 53 year old male presenting for 3 month follow up fatigue, vit D def. ANDREA stress test for family hx heart Had first stress test, saw Dr Russell James and he's going to do a chemical stress test now. flu: UTD 10/24/23 questions/concerns: History of Present Illness Pt here for follow up. - Pain in the left knee. - Swelling from kneeling. - Improved but still there. Review of Systems PHQ Score Initial Depression Screen Score: 0 SCORE Physical Exam Vitals & Measurements T: 36.7 ?C(Oral) HR: 68(Peripheral) RR: 16 BP: 122/80 SpO2: 98% HT: 76 in HT: 193 cm WT: 127.2 kg WT: 279.84 lb BMI: 34.15 General: alert, no acute distress ENMT: oral mucosa moist, Cardiovascular: regular rate and rhythm, normal peripheral perfusion Respiratory: Lungs CTA, respirations non labored Extremities: no deformity, no trauma, Small swelling infront of the L knee. No erythema, No signs of infection. Neurological: oriented x 4, LOC appropriate for age, CN II-XII intact, motor strength equal & normal bilaterally, speech normal Abdomen: Soft, Nontender, Non-distended, + BS Assessment/Plan 1. Prepatellar bursitis (M70.40: Prepatellar bursitis, unspecified knee) - Will try oral steroids as the area is small. - RICE advised 2. Fatigue (R53.83: Other fatigue) Improved. - Continue on Vit D. 3. Vitamin D deficiency (E55.9: Vitamin D deficiency, unspecified) - Will test at next visit. - Continue taking meds as before. 4. BMI 34.0-34.9,adult (Z68.34: Body mass index [BMI] 34.0-34.9, adult) - BMI education given 5. Class 1 obesity due to excess calories in adult (E66.09: Other obesity due to excess calories) - Diet and exervise advised 6. Smokeless tobacco use (Z72.0: Tobacco use) - Please stop using Nicotine 7. ARYAN (obstructive sleep apnea) (G47.33: Obstructive sleep apnea (adult) (pediatric)) - Continue CPAP 8. Insomnia due to stress (F51.02: Adjustment insomnia) - Improved. - Decreased stress in his life. Follow-up No qualifying data available Patient Education Fatigue BMI for Adults Problem List/Past Medical History Ongoing Asthma Fatigue Gastroesophageal reflux disease without esophagitis Hiatal hernia Insomnia due to stress Knee pain, right Nasal polyp ARYAN (obstructive sleep apnea) Polyarthritis Prepatellar bursitis Radiculopathy Vitamin D deficiency Historical No qualifying data Procedure/Surgical History Colonoscopy, EGD - Esophagogastroduodeno scopy, Right hand, Sinus. Medications Dosakap, See Instructions ProAir HFA, 2 puff(s), Inhalation, q4hr Xhance 93 mcg/inh nasal spray, 1 spray(s), Nasal, BID Allergies No Known Allergies Social History Substance Abuse - Denies Substance Abuse, 03/25/2023 Tobacco - Denies Tobacco Use, 01/24/2024 Never (less than 100 in lifetime) Tobacco Use:. Smokeless tobacco user within last 30 days Smokeless Tobacco Use:. Cigarettes, Household tobacco concerns: No., 01/27/2024 Family History Heart disease: Father. Rheumatoid arthritis: Father. Immunizations Vaccine Date Status Comments influenza virus vaccine, inactivated 10/24/2023 Given SARS-CoV-2 (COVID-19) [id number] 11/06/2022 Recorded 2023-03-25: TPV50 influenza virus vaccine, inactivated 10/25/2022 Recorded influenza virus vaccine, inactivated 10/24/2021 Recorded SARS-CoV-2 (COVID-19) mRNA BNT-162b2 vax 10/17/2021 Recorded 2023-03-25: TPV50 SARS-CoV-2 (COVID-19) mRNA BNT-162b2 vax 02/27/2021 Recorded SARS-CoV-2 (COVID-19) mRNA BNT-162b2 vax 02/06/2021 Recorded influenza virus vaccine, inactivated 08/08/2020 Recorded influenza virus vaccine, inactivated 09/10/2019 Recorded influenza virus vaccine, inactivated 08/30/2018 Recorded influenza virus vaccine, inactivated 09/25/2016 Recorded influenza virus vaccine, inactivated 10/10/2013 Recorded Normal [facility] Comment on above: Result Comment: Elec tronically Signed By: [place] SIMMS, Zach Moore.br\Date and Time Signed: 01/27/24 07:59 EST Insurance Correspondenceon 0 01-27-2024 Insurance Correspondence [id number]# 1.00TIFF Normal [facility] Patient Educationon 01-27-20 Patient Education Immunology Fatigue If you have fatigue, you feel tired all the time and have a lack of energy or a lack of motivation. Fatigue may make it difficult to start or complete tasks because of exhaustion. Occasional or mild fatigue is often a normal response to activity or life. However, long-term (chronic) or extreme fatigue may be a symptom of a medical condition such as: ? Depression. ? Not having enough red blood cells or hemoglobin in the blood (anemia). ? A problem with a small gland located in the lower front part of the neck (thyroid disorder). ? Rheumatologic conditions. These are problems related to the body's defense system (immune system). ? Infections, especially certain viral infections. Fatigue can also lead to negative health outcomes over time. Follow these instructions at home: Medicines ? Take vfpg-cfe-igueery and prescription medicines only as told by your health care provider. ? Take a multivitamin if told by your health care provider. ? Do not use herbal or dietary supplements unless they are approved by your health care provider. Eating and drinking ? Avoid heavy meals in the evening. ? Eat a well-balanced diet, which includes lean proteins, whole grains, plenty of fruits and vegetables, and low-fat dairy products. ? Avoid eating or drinking too many products with caffeine in them. ? Avoid alcohol. ? Drink enough fluid to keep your urine pale yellow. Activity ? Exercise regularly, as told by your health care provider. ? Use or practice techniques to help you relax, such as yoga, jacquelyn chi, meditation, or massage therapy. Lifestyle ? Change situations that cause you stress. Try to keep your work and personal schedules in balance. ? Do not use recreational or illegal drugs. General instructions ? Monitor your fatigue for any changes. ? Go to bed and get up at the same time every day. ? Avoid fatigue by pacing yourself during the day and getting enough sleep at night. ? Maintain a healthy weight. Contact a health care provider if: ? Your fatigue does not get better. ? You have a fever. ? You suddenly lose or gain weight. ? You have headaches. ? You have trouble falling asleep or sleeping through the night. ? You feel angry, guilty, anxious, or sad. ? You have swelling in your legs or another part of your body. Get help right away if: ? You feel confused, feel like you might faint, or faint. ? Your vision is blurry or you have a severe headache. ? You have severe pain in your abdomen, your back, or the area between your waist and hips (pelvis). ? You have chest pain, shortness of breath, or an irregular or fast heartbeat. ? You are unable to urinate, or you urinate less than normal. ? You have abnormal bleeding from the rectum, nose, lungs, nipples, or, if you are female, the vagina. ? You vomit blood. ? You have thoughts about hurting yourself or others. These symptoms may be an emergency. Get help right away. Call 911. ? Do not wait to see if the symptoms will go away. ? Do not drive yourself to the hospital. Get help right away if you feel like you may hurt yourself or others, or have thoughts about taking your own life. Go to your nearest emergency room or: ? Call 911. ? Call the National Suicide Prevention Lifeline at or 956. This is open 24 hours a day. ? Text the Crisis Text Line at 723555. Summary ? If you have fatigue, you feel tired all the time and have a lack of energy or a lack of motivation. ? Fatigue may make it difficult to start or complete tasks because of exhaustion. ? Long-term (chronic) or extreme fatigue may be a symptom of a medical condition. ? Exercise regularly, as told by your health care provider. ? Change situations that cause you stress. Try to keep your work and personal schedules in balance. This information is not intended to replace advice given to you by your health care provider. Make sure you discuss any questions you have with your health care provider. Document Revised: 09/03/2022 Document Reviewed: 09/03/2022 Elsevier Patient Education ? 2022 [employer] Nutrition BMI for Adults What is BMI? Body mass index (BMI) is a number that is calculated from a person's weight and height. BMI can help estimate how much of a person's weight is composed of fat. BMI does not measure body fat directly. Rather, it is an alternative to procedures that directly measure body fat, which can be difficult and expensive. BMI can help identify people who may be at higher risk for certain medical problems. What are BMI measurements used for? BMI is used as a screening tool to identify possible weight problems. It helps determine whether a person is obese, overweight, a healthy weight, or underweight. BMI is useful for: ? Identifying a weight problem that may be related to a medical condition or may increase the risk for medical problems. ? Promoti (more content not included)... Normal [facility] Physician Orderon 01-27-2024 Physician Order [id number]# 1.00TIFF [facility] Physician Referralon 024 Physician Referral [id number]# 1.00TIFF [facility] Cardiovascular Reporton 11-25 Cardiovascular Report [id number]. 00TIFF [facility] Ambulatory Visit Summaryon 12-24-2022 Ambulatory Visit Summary ERANGAYENICHOLE :1970 Visit Date:10/24/2023 Ambulatory Visit Instructions Your Diagnosis Fatigue Vitamin D deficiency BMI 33.0-33.9,adult Class 1 obesity due to excess calories in adult Nonsmoker Encounter for immunization Your Care Team Attending Physician - Zach Hannah MD Primary Care Physician - Zach Hannah MD This Is Your Medications List albuterol (ProAir HFA) fluticasone nasal (Xhance 93 mcg/inh nasal spray) Procedures Performed Colonoscopy, EGD - Esophagogastroduodeno scopy, Right hand, Sinus. Discharge Vitals Temperature (Temporal Artery) 36.2 ?C Heart Rate (Peripheral) 80 Respiratory Rate 16 Blood Pressure 126/82 Height 193 cm Height 76 in Weight 124.9 kg Weight 274.78 lb BMI 33.53 Medications What How Much When Instructions Unchanged albuterol (ProAir HFA) 2 Puffs Inhalation Every 4 hours Unchanged fluticasone nasal (Xhance 93 mcg/ inh nasal spray) 1 Sprays Nasal Inhalation 2 times a day each nostril Allergies No Known Allergies Problems Ongoing - Any problem that you are currently receiving treatment for. Asthma Fatigue Gastroesophageal reflux disease without esophagitis Hiatal hernia Hypogonadism in male Insomnia due to stress Knee pain, right Nasal polyp Polyarthritis Radiculopathy Vitamin D deficiency Patient Survey You may receive a survey via text or e-mail asking about your office visit. Please share your experience with us by completing your survey. We appreciate your feedback and thank you for choosing us for your care. Normal [facility] Consent for Flu Vaccineon Consent for Flu Vaccine [id number] .00TIFF Normal [facility] Family Medicine Office/Clini c Noteon 10-24-2023 Family Medicine Office/Clinic Note HPI Staff Nichole is a 53 year old male presenting for 6 month follow up Vit D deficiency and fatigue Vit D level on 03/26 28.3 Fatigue still persists, energy level is way down. He tested positive right after labor day, put him down for about 10 days. flu: will take today questions/concerns: thinks maybe should get his heart checked due to family history of problems History of Present Illness - Here for follow up. - Struggling with fatigue. - See staff HPI. Review of Systems PHQ Score Initial Depression Screen Score: 1 SCORE Physical Exam Vitals & Measurements T: 36.2 ?C(Temporal Artery) HR: 80(Peripheral) RR: 16 BP: 126/82 SpO2: 100% HT: 76 in HT: 193 cm WT: 124.9 kg WT: 274.78 lb BMI: 33.53 General: alert, no acute distress ENMT: oral mucosa moist, Cardiovascular: regular rate and rhythm, normal peripheral perfusion Respiratory: Lungs CTA, respirations non labored Extremities: no deformity, no trauma Neurological: oriented x 4, LOC appropriate for age, CN II-XII intact, motor strength equal & normal bilaterally, speech normal Abdomen: Soft, Nontender, Non-distended, + BS Assessment/Plan 1. Fatigue (R53.83: Other fatigue) - Still struggling. - Fhx of ID in his father in his 50's. - Will look at stress test for this. - Encouraged CPAP use Ordered: influenza virus vaccine, inactivated, 0.5 mL, Injection, IntraMuscular, Once, Stop date 10/24/23 8:00:00 EST, Routine, Start date 10/24/23 8:00:00 EST ECG Stress Exercise 2. Vitamin D deficiency (E55.9: Vitamin D deficiency, unspecified) - Please take Vitamind D suppilment Ordered: influenza virus vaccine, inactivated, 0.5 mL, Injection, IntraMuscular, Once, Stop date 10/24/23 8:00:00 EST, Routine, Start date 10/24/23 8:00:00 EST ECG Stress Exercise 3. Post-viral cough syndrome (R05.8: Other specified cough) - Discussed post viral cough - Declined inhaled steroid. Ordered: ECG Stress Exercise 4. BMI 33.0-33.9,adult (Z68.33: Body mass index [BMI] 33.0-33.9, adult) - BMI education given Ordered: influenza virus vaccine, inactivated, 0.5 mL, Injection, IntraMuscular, Once, Stop date 10/24/23 8:00:00 EST, Routine, Start date 10/24/23 8:00:00 EST ECG Stress Exercise 5. Class 1 obesity due to excess calories in adult (E66.09: Other obesity due to excess calories) - Diet and exercise advised. Ordered: influenza virus vaccine, inactivated, 0.5 mL, Injection, IntraMuscular, Once, Stop date 10/24/23 8:00:00 EST, Routine, Start date 10/24/23 8:00:00 EST ECG Stress Exercise 6. Nonsmoker (Z78.9: Other specified health status) - Please continue to not smoke Ordered: influenza virus vaccine, inactivated, 0.5 mL, Injection, IntraMuscular, Once, Stop date 10/24/23 8:00:00 EST, Routine, Start date 10/24/23 8:00:00 EST ECG Stress Exercise 7. Encounter for immunization (Z23: Encounter for immunization) - Flu shot given Ordered: FIRST VACCINE w/o [employer] Admin Charge [id number] 8. ARYAN (obstructive sleep apnea) (G47.33: Obstructive sleep apnea (adult) (pediatric)) - Encouraged CPAP use. Orders: Non-Formulary Medication, Dosakap, See Instructions, 90 EA, 0, Take one a day, [facility], Supply, 193, cm, 10/24/23 7:31:00 EST, Height/Length Dosing, 124.9, kg, 10/24/23 7:31:00 EST, Weight Dosing Follow-up No qualifying data available Patient Education BMI for Adults Problem List/Past Medical History Ongoing Asthma Fatigue Gastroesophageal reflux disease without esophagitis Hiatal hernia Hypogonadism in male Insomnia due to stress Knee pain, right Nasal polyp ARYAN (obstructive sleep apnea) Polyarthritis Post-viral cough syndrome Radiculopathy Vitamin D deficiency Historical No qualifying data Procedure/Surgical History Colonoscopy, EGD - Esophagogastroduodeno scopy, Right hand, Sinus. Medications Dosakap, See Instructions ProAir HFA, 2 puff(s), Inhalation, q4hr, Not taking Xhance 93 mcg/inh nasal spray, 1 spray(s), Nasal, BID Allergies No Known Allergies Social History Substance Abuse - Denies Substance Abuse, 03/25/2023 Tobacco Never (less than 100 in lifetime) Tobacco Use:. Smokeless tobacco user within last 30 days Smokeless Tobacco Use:. Cigarettes, Household tobacco concerns: No., 10/24/2023 Family History Heart disease: Father. Rheumatoid arthritis: Father. Immunizations Vaccine Date Status Comments influenza virus vaccine, inactivated 10/24/2023 Given SARS-CoV-2 (COVID-19) [id number] 11/06/2022 Recorded 2023-03-25: TPV50 influenza virus vaccine, inactivated 10/25/2022 Recorded influenza virus vaccine, inactivated 10/24/2021 Recorded SARS-CoV-2 (COVID-19) mRNA BNT-162b2 vax 10/17/2021 Recorded 2023-03-25: TPV50 SARS-CoV-2 (COVID-19) mRNA BNT-162b2 vax 02/27/2021 Recorded SARS-CoV-2 (COVID-19) mRNA BNT-162b2 vax 02/06/2021 Recorded influenza virus vaccine, inactivated 08/08/2020 Recorded influenza virus vaccine, inactivated 09/10/2019 (more content not included)... Normal [facility] Comment on above: Result Comment: Amanda ortizally Signed By: Camden SIMMS, Zach Moore.nile\Date and Time Signed: 10/24/23 08:47 EST Patient Educationon 10-24-20 23 Patient Education Nutrition BMI for Adults What is BMI? Body mass index (BMI) is a number that is calculated from a person's weight and height. BMI can help estimate how much of a person's weight is composed of fat. BMI does not measure body fat directly. Rather, it is an alternative to procedures that directly measure body fat, which can be difficult and expensive. BMI can help identify people who may be at higher risk for certain medical problems. What are BMI measurements used for? BMI is used as a screening tool to identify possible weight problems. It helps determine whether a person is obese, overweight, a healthy weight, or underweight. BMI is useful for: ? Identifying a weight problem that may be related to a medical condition or may increase the risk for medical problems. ? Promoting changes, such as changes in diet and exercise, to help reach a healthy weight. BMI screening can be repeated to see if these changes are working. How is BMI calculated? BMI involves measuring your weight in relation to your height. Both height and weight are measured, and the BMI is calculated from those numbers. This can be done either in [place]ian ([place] or metric measurements. Note that charts and online BMI calculators are available to help you find your BMI quickly and easily without having to do these calculations yourself. To calculate your BMI in [place]ian ([place] measurements: 1. Measure your weight in pounds (lb). 2. Multiply the number of pounds by 703. ? For example, for a person who weighs 180 lb, multiply that number by 703, which equals 126,540. 3. Measure your height in inches. Then multiply that number by itself to get a measurement called inches squared. ? For example, for a person who is 70 inches tall, the inches squared measurement is 70 inches x 70 inches, which equals 4,900 inches squared. 4. Divide the total from step 2 (number of lb x 703) by the total from step 3 (inches squared): 126,540 ? 4,900 = 25.8. This is your BMI. To calculate your BMI in metric measurements: 1. Measure your weight in kilograms (kg). 2. Measure your height in meters (m). Then multiply that number by itself to get a measurement called meters squared. ? For example, for a person who is 1.75 m tall, the meters squared measurement is 1.75 m x 1.75 m, which is equal to 3.1 meters squared. 3. Divide the number of kilograms (your weight) by the meters squared number. In this example: 70 ? 3.1 = 22.6. This is your BMI. What do the results mean? BMI charts are used to identify whether you are underweight, normal weight, overweight, or obese. The following guidelines will be used: ? Underweight: BMI less than 18.5. ? Normal weight: BMI between 18.5 and 24.9. ? Overweight: BMI between 25 and 29.9. ? Obese: BMI of 30 or above. Keep these notes in mind: ? Weight includes both fat and muscle, so someone with a muscular build, such as an athlete, may have a BMI that is higher than 24.9. In cases like these, BMI is not an accurate measure of body fat. ? To determine if excess body fat is the cause of a BMI of 25 or higher, further assessments may need to be done by a health care provider. ? BMI is usually interpreted in the same way for men and women. Where to find more information For more information about BMI, including tools to quickly calculate your BMI, go to these websites: ? Centers for Disease Control and Prevention: www.cdc.gov ? [employer]: www.heart.org ? National Heart, Lung, and Blood [place]: www.nhlbi.nih.gov Summary ? Body mass index (BMI) is a number that is calculated from a person's weight and height. ? BMI may help estimate how much of a person's weight is composed of fat. BMI can help identify those who may be at higher risk for certain medical problems. ? BMI can be measured using Georgian measurements or metric measurements. ? BMI charts are used to identify whether you are underweight, normal weight, overweight, or obese. This information is not intended to replace advice given to you by your health care provider. Make sure you discuss any questions you have with your health care provider. Document Revised: 08/03/2020 Document Reviewed: 06/10/2020 [employer] Patient Education ? 2022 [employer] Normal [facility] CHEMISTRYOrdered By: SYSTEM SYSTEM on 03-26-2023 25-hydroxyvitamin D3 [Mass/Vol] 28.3 ng/mL Low 30.0 - 100.0 ng/mL [facility] Remisol Albumin [Mass/Vol] 3.7 g/dL Normal 3.3 - 5.0 gm/dL [facility] Albumin/Globulin [Mass ratio] 1.2 {ratio} Normal 1.1 - 2.2 [facility] ALP [Catalytic activity/Vol] 49 [iU]/d Normal 21 - 98 Int._Unit/L [facility] Rem[facility] ALT No additional P-5'-P [Catalytic activity/Vol] 25 [iU]/d Normal 6 - 46 Int._Unit/L [facility] Anion gap [Moles/Vol] 11 mmol/L Normal 6 - 16 mEq/L [facility] AST [Catalytic activity/Vol] 18 [iU]/d Normal 5 - 43 Int._Unit/L [facility] Bilirubin [Mass/Vol] 0.6 mg/dL Normal 0.0 - 1 .1 mg/dL [facility] Calcium [Mass/Vol] 9.1 mg/dL Normal 8.9 - 11. 1 mg/dL [facility] Chloride [Moles/Vol] 105 mmol/L Normal 101 - 1 11 mmol/L [facility] Cholesterol [Mass/Vol] 190 mg/dL Normal 120 - 200 mg/dL [facility] Cholesterol in HDL [Mass/Vol] 38 mg/dL Invalid Interpretation Code [facility] Cholesterol in LDL [Mass/Vol] 136 mg/dL High <=129mg/dL [facility] Cholesterol in VLDL [Mass/Vol] 20 mg/dL Normal 7 - 40 mg/dL [facility] CO2 [Moles/Vol] 27 mmol/L Normal 21 - 31 mmol/L [facility] Cobalamin (Vitamin B12) [Mass/Vol] 256 pg/mL Normal 50 - 1500 pg/mL [facility] Creatinine [Mass/Vol] 0.9 mg/dL Normal 0.5 - 1.3 mg/dL [facility] GFR/1.73 sq M.predicted among non-blacks MDRD (S/P/Bld) [Vol rate/Area] 101 mL/min/1.73 m2 Normal >=59mL/min/1 .73 m2 [facility] Chem S Globulin (S) [Mass/Vol] 3.2 g/dL Normal 1.4 - 4.0 gm/dL [facility] Rem[facility] Glucose [Mass/Vol] 103 mg/dL Normal 55 - 199 mg/dL [facility] Magnesium [Mass/Vol] 1.9 mg/dL Normal 1.3 - 2 .4 mg/dL [facility] Potassium [Moles/Vol] 4.5 mmol/L Normal 3.5 - 5.3 mmol/L [facility] Protein [Mass/Vol] 6.9 g/dL Normal 6.0 - 7.8 gm/dL [facility] Sodium [Moles/Vol] 138 mmol/L Normal 135 - 145 mmol/L [facility] Triglyceride [Mass/Vol] 98 mg/dL Normal <=149mg/dL [facility] TSH Qn 1.37 m[IU]/L Normal 0.34 - 5.60 mcIU/mL [facility] Urea nitrogen [Mass/Vol] 14 mg/dL Normal 5 - 21 mg/dL [facility] Urea nitrogen/Creatinine [Mass ratio] 16 mg/mg Normal 10 - 20 [facility] HEMATOLOGYOrdered By: SYSTEM SYSTEM on 03-26-2023 Basophils/100 WBC (Bld) 0.4 % Normal 0.0 - 2.0 % [facility] HemeAutoSS Basophils/Leukocytes Auto (Bld) [Pure # fraction] 0.0 E9/L Normal 0.0 - 0.2 E9/L [facility] Eosinophils/100 WBC (Bld) 4.3 % Normal 0.0 - 8.0 % [facility]eAutoSS Eosinophils/Leukocyte s Auto (Bld) [Pure # fraction] 0.2 E9/L Normal 0.0 - 0.5 E9/L [facility] Lymphocytes/100 WBC (Bld) 36.2 % Normal 14.0 - 50.0 % [facility]eAutoSS Lymphocytes/Leukocyte s Auto (Bld) [Pure # fraction] 1.6 E9/L Normal 1.0 - 4.0 E9/L [facility] Monocytes/100 WBC (Bld) 7.8 % Normal 4.0 - 14.0 % [facility]eAutoSS Monocytes/Leukocytes Auto (Bld) [Pure # fraction] 0.4 E9/L Normal 0.2 - 1.0 E9/L [facility] Neutrophils/100 WBC (Bld) 51.3 % Normal 36.0 - 75.0 % [facility]eAutoSS Neutrophils/Leukocyte s Auto (Bld) [Pure # fraction] 2.3 E9/L Normal 2.0 - 7.5 E9/L [facility] HEMATOLOGYOrdered By: Honey Fitzgerald on 03-26-2023 Erythrocyte distribution width (RBC) [Ratio] 13.1 % Normal 10.9 - 14.2 % [facility] Hematocrit (Bld) [Volume fraction] 44.8 % Normal 37.7 - 49.0 % [facility] Hemoglobin (Bld) [Mass/Vol] 14.7 g/dL Normal 13.5 - 17.5 gm/dL [facility] MCH (RBC) [Entitic mass] 29.0 pg Normal 27.0 - 34.0 pg [facility] MCHC (RBC) [Mass/Vol] 32.9 g/dL Normal 31.4 - 36.0 gm/dL [facility] MCV (RBC) [Entitic vol] 88.4 fL Normal 80.0 - 100.0 fL [facility] Platelet mean volume (Bld) [Entitic vol] 10.3 fL Normal 6.4 - 10.8 fL [facility]eAuto[facility] Platelets (Bld) [#/Vol] 208.0 E9/L Normal 150.0 - 500.0 E9/L [facility] RBC (Bld) [#/Vol] 5.1 E12/L Normal 4.3 - 5.9 E12/L [facility] WBC corrected for nucl RBC Auto (Bld) [#/Vol] 4.5 E9/L Normal 4.0 - 11.0 E9/L [facility] HemeAutoSS CT SINUSES WO CONon --[address] SINUSES WO CON EXAMINATION: CT SINUSES WO CON HISTORY: Pansinusitis COMPARISON: No relevant comparison available. TECHNIQUE: Axial and Coronal CT images were created without IV contrast. Dose reduction techniques were achieved by using automated exposure control and/or adjustment of mA and/or kV according to patient size and/or use of iterative reconstruction technique. FINDINGS: MAXILLARY SINUSES: Remote resection bilateral medial maxillary rodríguez. Bilateral maxillary peripheral soft tissue attenuation measuring up to 6 mm likely mucoperiosteal thickening. ETHMOID SINUSES: Remote resection of the ethmoid sinuses. Peripheral mucoperiosteal thickening measuring up to 6 mm SPHENOID SINUSES: Remote resection anterior wall of the left sphenoid sinus. Peripheral mucoperiosteal thickening measuring up to 4 mm FRONTAL SINUSES: Bilateral opacification, 25% on the right, 80% on the left NASAL FOSSA: Resection of the superior nasal septum. Remote resection of the superior and inferior nasal turbinates OTHER: Negative. Limited views of the skull base and orbits are unremarkable. IMPRESSION: Postsurgical changes as described with moderate pansinusitis Electronically authenticated by: BEN HANLEY Date: 2022-09-19 08:57 Normal [facility] XR SINUSES 3 VIEWS OR GREATE Ricardo 09-12-2022 XR SINUSES 3 VIEWS OR GREATER EXAMINATION: XR SINUSES 3 VIEWS OR GREATER HISTORY: Chronic sinusitis COMPARISON: No relevant comparison available. FINDINGS: MAXILLARY: Obscuration of the sinus margins bilaterally suggesting marked mucosal thickening. No fluid levels. ETHMOID: No mucosal thickening or fluid level. FRONTAL: Obscuration of the right frontal sinus margins suggesting marked mucosal thickening. No fluid levels within the frontal sinuses. SPHENOID: Mucosal thickening. OTHER: Negative. IMPRESSION: 1. Multifocal opacification of the paranasal sinuses consistent with marked chronic sinusitis. No fluid levels to suggest acute sinusitis. Electronically authenticated by: LORNE GERONIMO Date: 2022-09-12 08:13 Normal [facility] BNPon 07-25-2022 Natriuretic peptide B (Bld) [Mass/Vol] 113.0 pg/mL Normal <=900.0 [facility] Comment on above: Performed By: #### B CHECK SCALER, CMP #### [facility] [address] [address] [address] Timo Mckenna CBC AUTO DIFFon 07-25-2022 BASO # 0.1 103/ul Normal 0.0-0.1 [facility] Comment on above: Performed By: #### C BC #### [facility] [address] [address] [address] Timo Mckenna Basophils/100 WBC (Bld) 0.4 % Normal 0.2-2.0 [facility] Comment on above: Performed By: #### C BC #### [facility] [address] [address] [address] Timo Mckenna EO # 0.0 103/ul Normal 0.0-0.7 [facility] Comment on above: Performed By: #### C BC #### [facility] [address] [address] [address] Timo Mckenna Eosinophils/100 WBC (Bld) 0.0 % Critically low 0.9-7.0 [facility] Comment on above: Performed By: #### C BC #### [facility] [address] [place] [address] Dr. Timo Mckenna Erythrocyte distribution width (RBC) [Ratio] 12.1 % Normal 11.0-15.0 [facility] Comment on above: Performed By: #### C BC #### [facility] [address] [address] [address] Timo Mckenna Hematocrit (Bld) [Volume fraction] 44.6 % Normal 42.0-54.0 [facility] Comment on above: Performed By: #### C BC #### [facility] [address] [place] [address] Dr. Timo Mckenna Hemoglobin (Bld) [Mass/Vol] 14.9 g/dL Normal 14.0-18.0 [facility] Comment on above: Performed By: #### C BC #### [facility] [address] [address] [address] Timo Mckenna IG # 0.39 10e3/ul Critically high 0.00-0.03 [facility] Comment on above: Performed By: #### C BC #### [facility] [address] [address] [address] Timo Mckenna IG % 3.4 % Critically high 0.0-0.5 [facility] Comment on above: Performed By: #### C BC #### [facility] [address] [address] [address] Timo Mckenna LYMPH # 1.4 103/ul Normal 1.2-3.8 [facility] Comment on above: Performed By: #### C BC #### [facility] [address] [place] [address] Dr. Timo Mckenna Lymphocytes/100 WBC (Bld) 12.2 % Critically low 20.5-60.0 [facility] Comment on above: Performed By: #### C BC #### [facility] [address] [place] [address] Dr. Timo Mckenna MANUAL DIFF REQ NO Normal [facility] Comment on above: Performed By: #### C BC #### [facility] [address] [place] [address] Dr. Timo Mckenna MCH (RBC) [Entitic mass] 29.4 pg Normal 25.9-34.0 [facility] Comment on above: Performed By: #### C BC #### [facility] [address] [place] [address] Dr. Timo Mckenna MCHC (RBC) [Mass/Vol] 33.4 g/dL Normal 29.9-35.2 [facility] Comment on above: Performed By: #### C BC #### [facility] [address] [place] [address] Dr. Timo Mckenna MCV (RBC) [Entitic vol] 88.1 fL Normal 80.0-94.0 [facility] Comment on above: Performed By: #### C BC #### [facility] [address] [address] Dr. Timo Mckenna MONO # 0.8 103/ul Normal 0.3-0.8 [facility] Comment on above: Performed By: #### C BC #### [facility] [address] [place] [address] Dr. Timo Mckenna Monocytes/100 WBC (Bld) 7.3 % Normal 1.7-12.0 [facility] Comment on above: Performed By: #### C BC #### [facility] [address] [place], [place] [id number] Dr. Timo Mckenna NEUT # 8.8 103/ul Critically high 1.4-6.5 [facility] Comment on above: Performed By: #### C BC #### [facility] [address] [place] [address] Dr. Timo Mckenna Neutrophils/100 WBC (Bld) 76.7 % Critically high 43.0-75.0 [facility] Comment on above: Performed By: #### C BC #### [facility] [address] [place] [address] Dr. Timo Mckenna Platelet mean volume (Bld) [Entitic vol] 10.5 fL Normal 9.5-13.5 [facility] Comment on above: Performed By: #### C BC #### [facility] [address] [place] [address] Dr. Timo Mckenna PLT 261 103/ul Normal 150-450 [facility] Comment on above: Performed By: #### C BC #### [facility] [address] [place] [address] Dr. Timo Mckenna RBC 5.06 106/ul Normal 4.70-6.10 [facility] Comment on above: Performed By: #### C BC #### [facility] [address] [place] [address] Dr. Timo Mckenna WBC 11.5 103/ul Critically high 4.0-11.0 [facility] Comment on above: Performed By: #### C BC #### [facility] [address] [place] [address] Dr. Timo Mckenna CTA CHEST WO W CONon 07-25- 022 CTA CHEST WO W CON EXAMINATION: CTA CHEST WO W CON, 07/25/2022 4:00 PM EDT HISTORY: SHORTNESS OF BREATH COMPARISON: Chest x-ray 05/21/2022. TECHNIQUE: CT angiography of the chest was performed with IV contrast. MIP (maximum intensity projection) images or 3D post processing was performed. CT dose reduction technique was used, including Automated Exposure Control. FINDINGS: VASCULATURE/PULMONARY ARTERIES: There is suboptimal but satisfactory opacification of the pulmonary arterial system. There is no evidence of pulmonary embolism. The main pulmonary artery is normal in diameter. The aorta and great vessels appear normal. HEART/PERICARDIUM: Normal. MEDIASTINAL/HILAR LYMPH NODES: No lymphadenopathy. ESOPHAGUS: Normal as visualized. PLEURAL CAVITY: No pleural effusion or pneumothorax. LUNGS/AIRWAYS: There is moderate diffuse bronchial wall thickening suggestive of bronchitis. Small calcified granuloma in the left upper lobe. Lungs are otherwise clear. CHEST WALL/AXILLA/LOWER NECK: Normal. VISUALIZED UPPER ABDOMEN: There is a 3.6 cm cyst in the left hepatic lobe and there is an 8 mm cyst in the right hepatic lobe. There are 2 adjacent calcified gallstones measuring up to 5 mm. BONES: No acute process. IMPRESSION: 1. No evidence of pulmonary embolism. 2. Bronchial wall thickening suggestive of bronchitis. No focal consolidation. 3. Hepatic cysts and cholelithiasis. Electronically authenticated by: LORNE GO Date: 2022-07-25 18:20 Normal [facility] PROF 14(COMP METB)on 022 Albumin [Mass/Vol] 3.4 g/dL Normal 3.4-5.0 [facility] Comment on above: Performed By: #### B CHECK SCALER, CMP #### [facility] [address] [place] [address] Dr. Timo Mckenna Albumin/Globulin [Mass ratio] 0.9 {ratio} Normal [facility] Comment on above: Performed By: #### B CHECK SCALER, CMP #### [facility] [address] [place] [address] Dr. Timo Mckenna ALP [Catalytic activity/Vol] 53 U/L Normal 46-116 [facility] Comment on above: Performed By: #### B CHECK SCALER, CMP #### [facility] [address] [place] [address] Dr. Timo Mckenna ALT [Catalytic activity/Vol] 25 U/L Normal 16-63 [facility] Comment on above: Performed By: #### B CHECK SCALER, CMP #### [facility] [address] [place] [address] Dr. Timo Mckenna Anion gap [Moles/Vol] 13.7 mmol/L Normal [facility] Comment on above: Performed By: #### B CHECK SCALER, CMP #### [facility] [address] [place] [address] Dr. Timo Mckenna AST [Catalytic activity/Vol] 12 U/L Critically low 15-37 [facility] Comment on above: Performed By: #### B CHECK SCALER, CMP #### [facility] [address] [place] [address] Dr. Timo Mckenna Bilirubin [Mass/Vol] 0.3 mg/dL Normal 0.2-1.0 [facility] Comment on above: Performed By: #### B CHECK SCALER, CMP #### [facility] [address] [place] [address] Dr. Timo Mckenna Calcium [Mass/Vol] 8.5 mg/dL Normal 8.5-10.1 [facility] Comment on above: Performed By: #### B CHECK SCALER, CMP #### [facility] [address] [place] [address] Dr. Timo Mckenna Chloride [Moles/Vol] 103 mmol/L Normal 98-107 [facility] Comment on above: Performed By: #### B CHECK SCALER, CMP #### [facility] [address] [place] [address] Dr. Timo Mckenna CO2 [Moles/Vol] 26.8 mmol/L Normal 21.0-32.0 [facility] Comment on above: Performed By: #### B CHECK SCALER, CMP #### [facility] [address] [place] [address] Dr. Timo Mckenna Creatinine [Mass/Vol] 1.02 mg/dL Normal 0.70-1.30 [facility] Comment on above: Performed By: #### B CHECK SCALER, CMP #### [facility] [address] [place] [address] Dr. Timo Mckenna EGFR-AF CITIZEN [place] >60 Normal >=60 [facility] Comment on above: Performed By: #### B CHECK SCALER, CMP #### [facility] [address] [place] [address] Dr. Timo Mckenna EGFR-NON AF CITIZEN [place] >60 Normal >=60 [facility] Comment on above: Performed By: #### B CHECK SCALER, CMP #### [facility] [address] [place] [address] Dr. Timo Mckenna Globulin (S) [Mass/Vol] 3.8 g/dL Normal [facility] Comment on above: Performed By: #### B CHECK SCALER, CMP #### [facility] [address] [place] [address] Dr. Timo Mckenna Glucose [Mass/Vol] 119 mg/dL Critically high 74-106 [facility] Comment on above: Performed By: #### B CHECK SCALER, CMP #### [facility] [address] [place] [address] Dr. Timo Mckenna Potassium [Moles/Vol] 4.5 mmol/L Normal 3.5-5.1 [facility] Comment on above: Performed By: #### B CHECK SCALER, CMP #### [facility] [address] [place] [address] Dr. Timo Mckenna Protein [Mass/Vol] 7.2 g/dL Normal 6.4-8.2 [facility] Comment on above: Performed By: #### B CHECK SCALER, CMP #### [facility] [address] [place] [address] Dr. Timo Mckenna Sodium [Moles/Vol] 139 mmol/L Normal 136-145 [facility] Comment on above: Performed By: #### B CHECK SCALER, CMP #### [facility] [address] [place] [address] Dr. Timo Mckenna Urea nitrogen [Mass/Vol] 23.0 mg/dL Critically high 7.0-18.0 [facility] Comment on above: Performed By: #### B CHECK SCALER, CMP #### [facility] [address] [place] [address] Dr. Timo Mckenna Urea nitrogen/Creatinine [Mass ratio] 22.5 mg/mg Normal [facility] Comment on above: Performed By: #### B CHECK SCALER, CMP #### [facility] [address] [place] [address] Dr. Timo Mckenna Cov[facility]26 SARS-CoV-2 (COVID-19) RNA AARON+probe Ql (Unsp spec) Detected Critically abnormal NOT DETECTED [facility] Comment on above: Result Comment: This test is not yet approved or cleared by the [place] FDA. When there are no FDA-approved or cleared tests available, and other criteria are met, FDA can make tests available under an emergency access mechanism called an Emergency Use Authorization (EUA). The EUA for this test is supported by the [place] of Health and Human Service's declaration that circumstances exist to justify the emergency use of in vitro diagnostics for the detection and/or diagnosis of the virus that causes COVID-19. This EUA will remain in effect for the duration of the COVID-19 declaration justifying emergency of IVDs, unless it is terminated or revoked by the FDA (after which the test may no longer be used). Performed By: #### C VDTB #### [facility] [address] [place] [address] Dr. Timo Mckenna Covid-19 PCR ([facility]on 06-26 SARS-CoV-2 (COVID-19) RNA AARON+probe Ql (Unsp spec) Not detected Normal NOT DETECTED [facility] Comment on above: Result Comment: This test is not yet approved or cleared by the [place] FDA. When there are no FDA-approved or cleared tests available, and other criteria are met, FDA can make tests available under an emergency access mechanism called an Emergency Use Authorization (EUA). The EUA for this test is supported by the [place] of Health and Human Service's (HHS's) declaration that circumstances exist to justify the emergency use of in vitro diagnostics for the detection and/or diagnosis of the virus that causes COVID-19. This EUA will remain in effect (meaning this test can be used) for the duration of the COVID-19 declaration justifying emergency of IVDs, unless it is terminated or revoked by FDA (after which the test may no longer be used). When diagnostic testing is negative, the possibility of a false negative should be considered in the context of a patient's recent exposures and the presence of clinical signs and symptoms consistent with SARS-CoV-2. Performed By: #### C VDTBH #### [facility] [address] [place] [address] [id number] [address] Timo Mckenna HEMOGLOBINon 06-14-2022 Hemoglobin (Bld) [Mass/Vol] 14.1 g/dL Normal 14.0-18.0 [facility] Comment on above: Performed By: #### H GB ####[facility] [address] [place], [place] [address]Dr. Timo Mckenna XR CHEST 2 Von 05-21-2022 XR CHEST 2 V EXAM: XR CHEST 2 V HISTORY: Dyspnea COMPARISON: 08/30/2020 TECHNIQUE: Upright PA and lateral chest x-ray FINDINGS: The heart is not enlarged and the vasculature is not distended. No acute infiltrate, effusion or pneumothorax is identified. The osseous structures are grossly intact. IMPRESSION: No acute infiltrate or evidence of cardiac decompensation. The overall appearance of the chest is unchanged. Electronically authenticated by: KITA DANIELS Date: 2022-05-21 13:05 Normal [facility] CBC AUTO DIFFon 02-09-2022 BASO # 0.0 103/ul Normal 0.0-0.1 [facility] Comment on above: Performed By: #### C BC ####[facility] [address] [place], [place] [address]DrBan Mckenna Basophils/100 WBC (Bld) 0.6 % Normal 0.2-2.0 [facility] Comment on above: Performed By: #### C BC ####[facility] [address] [place], [place] [address]Dr. Timo Mckenna EO # 0.2 103/ul Normal 0.0-0.7 [facility] Comment on above: Performed By: #### C BC ####[facility] [address] [place], [place] [address]DrBan Mckenna Eosinophils/100 WBC (Bld) 3.6 % Normal 0.9-7.0 [facility] Comment on above: Performed By: #### C BC ####[facility] [address] [place], [place] [address]DrBan Mckenna Erythrocyte distribution width (RBC) [Ratio] 12.3 % Normal 11.0-15.0 [facility] Comment on above: Performed By: #### C BC ####[facility] [address] [place], [place] [address]DrBan Mckenna Hematocrit (Bld) [Volume fraction] 42.1 % Normal 42.0-54.0 [facility] Comment on above: Performed By: #### C BC ####[facility] [address] [place] [address]Dr. Timo Mckenna Hemoglobin (Bld) [Mass/Vol] 13.6 g/dL Critically low 14.0-18.0 [facility] Comment on above: Performed By: #### C BC ####[facility] [address] [place], [place] [address]DrBan Mckenna IG # 0.01 10e3/ul Normal 0.00-0.03 [facility] Comment on above: Performed By: #### C BC ####[facility] [address] [place], [place] [address]Dr. Timo Mckenna IG % 0.2 % Normal 0.0-0.5 [facility] Comment on above: Performed By: #### C BC ####[facility] [address] [place], [place] [address]DrBan Mckenna LYMPH # 1.7 103/ul Normal 1.2-3.8 [facility] Comment on above: Performed By: #### C BC ####[facility] [address] [place], [place] [address]DrBan Taramadai Mckenna Lymphocytes/100 WBC (Bld) 32.9 % Normal 20.5-60.0 [facility] Comment on above: Performed By: #### C BC ####[facility] [address] [place], [place] [address]DrBan Mckenna MANUAL DIFF REQ NO Normal [facility] Comment on above: Performed By: #### C BC ####[facility] [address] [place], [place] [address]DrBan Mckenna MCH (RBC) [Entitic mass] 29.7 pg Normal 25.9-34.0 [facility] Comment on above: Performed By: #### C BC ####[facility] [address] [place], [place] [address]Dr. Timo Mckenna MCHC (RBC) [Mass/Vol] 32.3 g/dL Normal 29.9-35.2 [facility] Comment on above: Performed By: #### C BC ####[facility] [address] [place] [address]DrBan Mckenna MCV (RBC) [Entitic vol] 91.9 fL Normal 80.0-94.0 [facility] Comment on above: Performed By: #### C BC ####[facility] [address] [place], [place] [address]DrBan Mckenna MONO # 0.5 103/ul Normal 0.3-0.8 [facility] Comment on above: Performed By: #### C BC ####[facility] [address] [place], [place] [address]DrBan Mckenna Monocytes/100 WBC (Bld) 8.7 % Normal 1.7-12.0 [facility] Comment on above: Performed By: #### C BC ####[facility] [address] [place], [place] [address]DrBan Mckenna NEUT # 2.8 103/ul Normal 1.4-6.5 [facility] Comment on above: Performed By: #### C BC ####[facility] [address] [place], [place] [address]DrBan Mckenna Neutrophils/100 WBC (Bld) 54.0 % Normal 43.0-75.0 [facility] Comment on above: Performed By: #### C BC ####[facility] [address] [place], [place] [address]DrBan Mckenna Platelet mean volume (Bld) [Entitic vol] 10.8 fL Normal 9.5-13.5 [facility] Comment on above: Performed By: #### C BC ####[facility] [address] [place], [place] [address]DrBan Mckenna PLT 203 103/ul Normal 150-450 [facility] Comment on above: Performed By: #### C BC ####[facility] [address] [place], [place] [address]DrBan Mckenna RBC 4.58 106/ul Critically low 4.70-6.10 [facility] Comment on above: Performed By: #### C BC ####[facility] [address] [place] [address]Dr. Timo Mckenna WBC 5.3 103/ul Normal 4.0-11.0 [facility] Comment on above: Performed By: #### C BC ####[facility] [address] [place] [address]Dr. Timo Mckenna CRPon 02-09-2022 CRP [Mass/Vol] mg/L Normal <=1.0 [facility] Comment on above: Performed By: #### T SH, FT3, BMP, CRP ####[facility] [address] [place] [address]Dr. Timo Mckenna FREE T3on 02-09-2022 FREE T3 3.19 pg/mlL Normal 2.77-5.27 [facility] Comment on above: Performed By: #### T SH, FT3, BMP, CRP ####[facility] [address] [place] [address]Dr. Timo Mckenna FREE T4on 02-09-2022 Free T4 [Mass/Vol] 1.06 ng/dL Normal 0.78-2.19 [facility] Comment on above: Performed By: #### F T4 #### [facility] [address] [address] [address] Timo Mckenna PROF CHEM 8 (BAS METB)on Anion gap [Moles/Vol] 12.9 mmol/L Normal [facility] Comment on above: Performed By: #### T SH, FT3, BMP, CRP ####[facility] [address] [place] [address]Dr. Timo Mckenna Calcium [Mass/Vol] 8.4 mg/dL Critically low 8.5-10.1 [facility] Comment on above: Performed By: #### T SH, FT3, BMP, CRP ####[facility] [address] [place] [address]Dr. Timo Mckenna Chloride [Moles/Vol] 105 mmol/L Normal 98-107 [facility] Comment on above: Performed By: #### T SH, FT3, BMP, CRP ####[facility] [address] [place] [address]Dr. Timo Mckenna CO2 [Moles/Vol] 28.5 mmol/L Normal 22.0-30.0 [facility] Comment on above: Performed By: #### T SH, FT3, BMP, CRP ####[facility] [address] [place] [address]Dr. Timo Mckenna Creatinine [Mass/Vol] 0.97 mg/dL Normal 0.66-1.25 [facility] Comment on above: Performed By: #### T SH, FT3, BMP, CRP ####[facility] [address] [place] [address]Dr. Timo Mckenna EGFR-AF CITIZ[place] OF [place] >60 Normal >=60 [facility] Comment on above: Performed By: #### T SH, FT3, BMP, CRP ####[facility] [address] [place] [address]Dr. Timo Mckenna EGFR-NON AF CITIZEN OF [place] >60 Normal >=60 [facility] Comment on above: Performed By: #### T SH, FT3, BMP, CRP ####[facility] [address] [place] [address]Dr. Timo Mckenna Glucose [Mass/Vol] 112 mg/dL Critically high 74-106 [facility] Comment on above: Performed By: #### T SH, FT3, BMP, CRP ####[facility] [address] [place] [address]Dr. Timo Mckenna Potassium [Moles/Vol] 4.4 mmol/L Normal 3.4-5.0 [facility] Comment on above: Performed By: #### T SH, FT3, BMP, CRP ####[facility] [address] [place] [address]Dr. Timo Mckenna Sodium [Moles/Vol] 142 mmol/L Normal 137-145 [facility] Comment on above: Performed By: #### T SH, FT3, BMP, CRP ####[facility] [address] [place], [place] [address]Ga. Timo Mckenna Urea nitrogen [Mass/Vol] 18.0 mg/dL Normal 7.0-18.0 [facility] Comment on above: Performed By: #### T SH, FT3, BMP, CRP ####[facility] [address] [place] [id number]. Timo Mckenna Urea nitrogen/Creatinine [Mass ratio] 18.6 mg/mg Normal [facility] Comment on above: Performed By: #### T SH, FT3, BMP, CRP ####[facility] [address] [place] [address]Dr. Timo Mckenna [facility] 2021 SED RATE 6 mm/hr Normal <=20 [facility] Comment on above: Performed By: #### S EDR #### [facility] [address] [address] [address] Timo Mckenna TSHon 02-09-2022 TSH 1.346 uIU/mL Normal 0.470-4.680 [facility] Comment on above: Performed By: #### T SH, FT3, BMP, CRP ####[facility] [address] [place] [address]DrBan Mckenna TSH RANGE SEE BELOW Normal [facility] Comment on above: Result Comment: <0.3 4 UIU/ml HYPERTHYROID 0.34-5.60 UIU/ml EUTHYROID >5.60 UIU/ml HYPOTHYROID Performed By: #### T SH, FT3, BMP, CRP ####[facility] [address] [place] [id number] Mckenna Vital Signs Date Time Vital Sign Value Performing Clinician Alma serna 04-22-2024 15:51-0400 Blood Pressure Location Miguel Wells [facility] 04-22-2024 15:51-0400 Diastolic blood pressure 84 mm[Hg] Miguel Wells [facility] 04-22-2024 15:51-0400 Heart rate 83 /min Miguel Wells [facility] 04-22-2024 15:51-0400 SaO2% (BldA) [Mass fraction] 95 % Miguel Ramachandranerson [facility] 04-22-2024 15:51-0400 Systolic blood pressure 118 mm[Hg] Miguel Benjaminofferson [facility] 01-24-2024 11:32-0500 Diastolic blood pressure 80 mm[Hg] Miguel Welsl [facility] 01-24-2024 11:32-0500 Heart rate 76 /min Miguel Benjaminofferson [facility] 01-24-2024 11:32-0500 SaO2% (BldA) [Mass fraction] 94 % Miguel Wells [facility] 01-24-2024 11:32-0500 Systolic blood pressure 130 mm[Hg] Miguel Wells [facility] 03-08-2023 11:41-0400 Diastolic blood pressure 68 mm[Hg] MD Abbi Dempsey Work Phone: [facility] 03-08-2023 11:41-0400 Heart rate 64 /min MD Abbi Dempsey Work Phone: [facility] 03-08-2023 11:41-0400 Respiratory rate 16 /min MD Abbi Dempsey Work Phone: [facility] 03-08-2023 11:41-0400 SaO2% (BldA) [Mass fraction] 97 % MD Abbi Dempsey Work Phone: [facility] 03-08-2023 11:41-0400 Systolic blood pressure 120 mm[Hg] MD Abbi Dempsey Work Phone: [facility] 03-08-2023 10:00-0400 Body height 193.04 cm MD Abbi Dempsey Work Phone: [facility] 03-08-2023 10:00-0400 Body temperature 98.5 [degF] MD Abbi Dempsey Work Phone: [facility] 03-08-2023 10:00-0400 Body weight 124.73 kg MD Abbi Dempsey Work Phone: [facility] Encounters Encounter Date Encounter Type Care Provider Facility Start: 10-12-2024 ambulatory Zach Hannah Facility :[facility] Start: 08-03-2024 End: 08-03-2024 Lab Drop off Zach Hannah [facility] Start: 08-03-2024 End: 08-03-2024 ambulatory Zach Hannah Facility:[facility] Start: 06-30-2024 End: 06-30-2024 ambulatory MICHELLE Bermudez BIEDENBACH Not Available Start: 04-22-2024 End: 04-22-2024 ambulatory XXXX NONE Facility[place] Start: 04-22-2024 End: 04-22-2024 Patient encounter procedure Miguel Wells [facility] Start: 02-12-2024 End: 05-13-2024 ambulatory Miguel Wells Facility:[facility] Start: 02-12-2024 End: 05-13-2024 Recurring Miguel Wells [facility] Start: 01-28-2024 End: 01-28-2024 ambulatory MICHELLE S BIEDENBACH Not Available Start: 01-27-2024 End: 01-27-2024 ambulatory Zach Hannah Facility:[facility] [place] Start: 01-24-2024 End: 01-24-2024 ambulatory Zach Hannah Facility:[facility] Start: 01-24-2024 End: 01-24-2024 Patient encounter procedure Miguel Wells [facility] Start: 12-10-2023 End: 12-10-2023 ambulatory Nina [facility]ebra Other [employer] Other Start: 12-10-2023 Office outpatient ne w 30 minutes Nina Lerma [facility] Start: 10-24-2023 End: 10-24-2023 ambulatory Zach Hannah Facility:[facility] [place] Start: 08-29-2023 ambulatory Zach Hannah Facility:[facility] [place] Start: 08-14-2023 End: 08-14-2023 ambulatory Zach Hannah Facility:[facility] [place] Start: 04-05-2023 End: 04-05-2023 Patient encounter procedure Zach Hannah [facility] Start: 03-26-2023 End: 03-26-2023 Lab Drop off Zach Hannah [facility] Start: 03-08-2023 End: 03-08-2023 ambulatory Ortega Cabrera Facility:[facility] Start: 03-08-2023 End: 03-08-2023 Admission to same day surgery center MD Abbi Dempsey Work Phone: [facility] Work Phone: Start: 03-08-2023 End: 03-08-2023 ambulatory MD Abbi Dempsey Work Phone: [facility] Work Phone: Start: 09-19-2022 End: 09-20-[address] ABBI DEMPSEY Facility:[facility] Start: 09-11-2022 End: 09-12-[address] ABBI DEMPSEY Facility:[facility] Start: 07-25-2022 End: 07-25-[address] ABBI DEMPSEY Facility:[facility] Start: 07-20-2022 End: 07-20-[address] ABBI DEMPSEY Facility:[facility] Start: 07-17-2022 End: 07-17-[address] ABBI DEMPSEY Facility:[facility] Start: 06-14-2022 End: 06-15-[address] ABBI DEMPSEY Facility:[facility] Start: 05-21-2022 End: 05-22-[address] ABBI DEMPSEY Facility:[facility] Start: 02-09-2022 End: 02-10-[address] ABBI DEMPSEY Facility:[facility] Procedures Date Procedure Procedure Detail Performing Clinician Start: 03-08-2023 Screening colonoscopy MD Abbi Dempsey Work Phone: Colonoscopy Zach Hannah Comment on above: 2022 Esophagogastroduodenoscopy S sherry Hannah Sinus (morphologic abnormality) Zach Hannah Comment on above: surgery for two polyps Structure of right h and (body structure) Zach Hannah Comment on above: tendon surgery Plan of Treatment Date Care Activity Detail Author Start: 03-08-2023 [facility] Immunizations Immunization Date Immunization Notes Care Provider [facility] 10-24-2023 influenza, injectable, quadrivalent, preservative free Miguel Wells [facility] 11-06-2022 SARS-CoV-2 (COVID-19 ) [id number] Zach Hannah [facility] Comment on above: Result Comment: 2022: TPV50 10-25-2022 influenza virus vaccine, unspecified formulation Zach Hannah [facility] 10-24-2021 influenza virus vaccine, unspecified formulation Zach Hannah [facility] 10-17-2021 COVID-19 mRNATrav (Pfizer) MD Abbi Dempsey Work Phone: [facility] Comment on above: Result Comment: 2022: [id number] 05-29-2021 COVID-19 mRNA, Comirnaty (Pfizer) MD Abbi Dempsey Work Phone: [facility] 02-27-2021 SARS-CoV-2 (COVID-19 ) mRNA BNT-162b2 vax Zach Hannah [facility] 02-06-2021 COVID-19 mRNATrav (Pfizer) MD Abbi Dempsey Work Phone: [facility] 08-08-2020 influenza virus vaccine, unspecified formulation Zach Hannah [facility] 09-10-2019 influenza virus vaccine, unspecified formulation Zach Hannah [facility] 08-30-2018 influenza virus vaccine, unspecified formulation Zach Hannah [facility] 09-25-2016 influenza virus vaccine, unspecified formulation Zach Hannah [facility] 10-10-2013 influenza virus vaccine, unspecified formulation Zach Hannah [facility] Payers Date Payer Category Payer Self-pay [id number] 1970 Unknown [id number] 01.10.84 [id number] 1970 Unknown [id number] 01.10.84 0.1.997044.3.579.259 1968 Unknown [id number] 01.10.84 0.1.235493.3.579.259 1968 Unknown [id number] 01.10.84 0.1.349151.3.579.259 1968 Unknown [id number] 01.10.84 0.1.387470.3.579.259 1968 Unknown [id number] 2.16.84 0.1.971634.3.579.2.593 1968 Unknown [id number] 2.16.84 0.1.887604.3.579.2.593 1968 Unknown [id number] 2.16.84 0.1.847777.3.579.2.593 1968 Unknown [id number] 2.16.84 0.1.825843.3.579.2.1258 1968 Unknown [id number] 2.16.84 0.1.427965.3.579.2.1259 1968 Unknown [id number] 2.16.8 40.1.671167.3.579.2. 1968 Unknown [id number] 2.16.8 40.1.338607.3.579.2.72 1968 Unknown [id number] 2.16.8 40.1.821285.3.579.2.72 1968 Unknown [id number] 2.16.8 40.1.378038.3.579.2.72 1968 Unknown [id number] 2.16.8 40.1.187730.3.579.2. 1968 Unknown [id number] 2.16.8 40.1.155862.3.579.2.727 1968 Unknown [id number] 2.16.8 40.1.141573.3.579.2. 1968 Unknown [id number] 2.16.8 40.1.934028.3.579.2.72 1968 Unknown [id number] 2.16.8 40.1.509080.3.579.2. 1968 Unknown [id number] 2.16.8 40.1.816964.3.579.2.727 1959 Unknown [id number] Unknown [id number] 2.16.8 40.1.356266.3.579.2.531 Social History Date Type Detail Facility Start: 03-08-2023 End: 08-03-2024 Tobacco smoking status NHIS Never smoked tobacco (finding) [facility] Start: 1970 Sex Assigned At Male [facility] Tobacco smoking status Smokeless tobacco user within last 30 days [facility] Sex Assigned At Male [facility] Goals Date Patient Goal Desired Activity /State Functional Status Date Assessment Result Facility 04-22-2024 Functional Status No [facility] 01-24-2024 Functional Status No [facility] Clinical Notes 03-08-2023 to 08-03-2024 Note Date & Type Note Facility 08-03-2024 Note Patient Education Orthopedics Acute Knee Pain, Adult Acute knee pain is sudden and may be caused by damage, swelling, or irritation of the muscles and tissues that support the knee. Pain may result from: ? A fall. ? An injury to the knee from twisting motions. ? A hit to the knee. ? Infection. Acute knee pain may go away on its own with time and rest. If it does not, your health care provider may order tests to find the cause of the pain. These may include: ? Imaging tests, such as an X-ray, MRI, CT scan, or ultrasound. ? Joint aspiration. In this test, fluid is removed from the knee and evaluated. ? Arthroscopy. In this test, a lighted tube is inserted into the knee and an image is projected onto a TV screen. ? Biopsy. In this test, a sample of tissue is removed from the body and studied under a microscope. Follow these instructions at home: If you have a knee sleeve or brace: ? Wear the knee sleeve or brace as told by your health care provider. Remove it only as told by your health care provider. ? Loosen it if your toes tingle, become numb, or turn cold and blue. ? Keep it clean. ? If the knee sleeve or brace is not waterproof: ? Do not let it get wet. ? Cover it with a watertight covering when you take a bath or shower. Activity ? Rest your knee. ? Do not do things that cause pain or make pain worse. ? Avoid high-impact activities or exercises, such as running, jumping rope, or doing jumping jacks. ? Work with a physical therapist to make a safe exercise program, as recommended by your health care provider. Do exercises as told by your physical therapist. Managing pain, stiffness, and swelling ? If directed, put ice on the affected knee. To do this: ? If you have a removable knee sleeve or brace, remove it as told by your health care provider. ? Put ice in a plastic bag. ? Place a towel between your skin and the bag. ? Leave the ice on for 20 minutes, 2?3 times a day. ? Remove the ice if your skin turns bright red. This is very important. If you cannot feel pain, heat, or cold, you have a greater risk of damage to the area. ? If directed, use an elastic bandage to put pressure (compression) on your injured knee. This may control swelling, give support, and help with discomfort. ? Raise (elevate) your knee above the level of your heart while you are sitting or lying down. ? Sleep with a pillow under your knee. General instructions ? Take cplf-cbz-ququwie and prescription medicines only as told by your health care provider. ? Do not use any products that contain nicotine or tobacco, such as cigarettes, e-cigarettes, and chewing tobacco. If you need help quitting, ask your health care provider. ? If you are overweight, work with your health care provider and a dietitian to set a weight-loss goal that is healthy and reasonable for you. Extra weight can put pressure on your knee. ? Pay attention to any changes in your symptoms. ? Keep all follow-up visits. This is important. Contact a health care provider if: ? Your knee pain continues, changes, or gets worse. ? You have a fever along with knee pain. ? Your knee feels warm to the touch or is red. ? Your knee arsalan or locks up. Get help right away if: ? Your knee swells, and the swelling becomes worse. ? You cannot move your knee. ? You have severe pain in your knee that cannot be managed with pain medicine. Summary ? Acute knee pain can be caused by a fall, an injury, an infection, or damage, swelling, or irritation of the tissues that support your knee. ? Your health care provider may perform tests to find out the cause of the pain. ? Pay attention to any changes in your symptoms. Relieve your pain with rest, medicines, light activity, and the use of ice. ? Get help right away if your knee swells, you cannot move your knee, or you have severe pain that cannot be managed with medicine. This information is not intended to replace advice given to you by your health care provider. Make sure you discuss any questions you have with your health care provider. Document Revised: 04/25/2021 Document Reviewed: 04/26/2021 [employer] Patient Education ? 2023 [employer] [facility] 02-17-2024 Note Echocardiology Procedure Exam Date/Time Accession # Ordering Echo Transthoracic 02/12/2024 11:54 EDT [id number] Russell SIMMS, Miguel Swan CPT code [id number] Reason for Exam (Echo Transthoracic Complete) Abnormal result of other cardiovascular function study;Other (please specify) Report Version: 1 Study ID: [id number] [facility] [address] [place] [address] Adult Echocardiogram Report Name: NICHOLE BARILLAS Study Date: 02/12/2024, 11: 07 AM Patient Location: [facility] : 1970 (MM/DD/YYYY) Gender: Male Age: 53 Years Height: 193.04 cm BP: 121 / 53 mmHg Weight: 126.554 kg HR: 59 bpm BSA: 2.6 m? Ordering Physician: Miguel Wells Referring Physician: Miguel Wells Performed By: Zara Alanis RDMS, T Reason For Study: Abnormal ECG History: No cardiac history per patient Interpretation Summary Ejection Fraction = 60-65%. Normal LV and RV. No significant valve disease. Normal estimated PA pressure. Impaired diastolic relaxation. Procedure A complete two-dimensional transthoracic echocardiogram was performed (2D, M-mode, spectral and color flow Doppler). Study quality is good. Left Ventricle The left ventricle is normal in size. There is normal left ventricular wall thickness. Ejection Fraction = 60-65%. The left ventricular wall motion is normal. Grade I diastolic dysfunction, (abnormal relaxation pattern). Echocardiology Report Left Atrium The left atrial size is normal. Right Atrium Right atrial size is normal. Right Ventricle The right ventricular systolic function is normal. The right ventricle is normal size. The right ventricular wall motion is normal. Aortic Valve The aortic valve is trileaflet. No aortic regurgitation. There is no aortic stenosis. Mitral Valve The mitral valve is normal in structure and function. There is no mitral regurgitation noted. No mitral valve stenosis. Tricuspid Valve Structurally normal tricuspid valve. No evidence of tricuspid regurgitation. Right ventricular systolic pressure is normal. Pulmonic Valve No evidence of stenosis. There is no pulmonic valve regurgitation. Arteries The aortic root is normal in size. Normal ascending aorta. Pulmonary artery diameter is normal. Venous The inferior vena cava is normal in size, and collapses normally with respiration. Effusion There is no pericardial effusion. Left Ventricle IVSd: 0.98 cm LVIDd: 5.2 cm LVPWd: 1.08 cm LVIDs: 2.9 cm EDV(MOD-sp4): 129.0 ml LVLd ap4: 8.9 cm ESV(MOD-sp4): 52.1 ml LVLs ap4: 7.4 cm EDV(MOD-sp2): 101.0 ml LVLd ap2: 8.6 cm ESV(MOD-sp2): 34.6 ml LVLs ap2: 7.6 cm Right Ventricle TAPSE: 1.85 cm RV Base_phl: 3.6 cm RV Mid_phl: 2.9 cm RV Length_phl: 8.9 cm Aortic Valve LVOT diam: 2.42 cm LV V1 mean P.00 mmHg LV V1 mean: 55.3 cm/sec LV V1 VTI: 18.6 cm Ao V2 VTI: 24.6 cm Ao mean P.0 mmHg Ao V2 mean: 75.2 cm/sec LV V1 max: 86.5 cm/sec LV V1 max P.0 mmHg Ao max P.1 mmHg Ao V2 max: 113.0 cm/sec Aorta Ao root diam: 3.3 cm asc Aorta Diam: 2.8 cm Atria LA dimension: 4.3 cm Diastolic funtion MV dec time: 0.25 sec MV E max kellie: 61.7 cm/sec MV A max kellie: 80.1 cm/sec Echocardiology Report Ao max P.1 mmHg Ao mean P.0 mmHg Ao root area: 8.7 cm? Ao root diam: 3.3 cm Ao V2 max: 113.0 cm/sec Ao V2 mean: 75.2 cm/sec Ao V2 VTI: 24.6 cm AV VR: 0.77 TODD(I,D): 3.5 cm? TODD(V,D): 3.5 cm? TODD(VTI)/BSA_phl: 1.34 EDV(MOD-sp4): 129.0 ml EDV(Teich): 127.8 ml EF(MOD-sp4): 59.6 % EF(Teich): 74.1 % ESV(MOD-sp4): 52.1 ml ESV(Teich): 33.2 ml FS: 43.2 % IVC Diam: 1.57 cm IVSd: 0.98 cm LA dimension: 4.3 cm LV V1 max: 86.5 cm/sec LV V1 max P.0 mmHg LV V1 mean: 55.3 cm/sec LV V1 mean P.00 mmHg LV V1 VTI: 18.6 cm LVIDd: 5.2 cm LVIDs: 2.9 cm LVLd ap4: 8.9 cm LVLs ap4: 7.4 cm LVOT area: 4.6 cm? LVOT diam: 2.42 cm LVPWd: 1.08 cm MV A max kellie: 80.1 cm/sec MV dec time: 0.25 sec MV E max kellie: 61.7 cm/sec MV E/A: 0.77 RAP systole: 3.0 mmHg RV Base_phl: 3.6 cm RV Length_phl: 8.9 cm RV Mid_phl: 2.9 cm RVDd: 3.9 cm RVIDd/LVIDd: 0.75 SV(LVOT): 85.7 ml SV(MOD-sp4): 76.9 ml TAPSE: 1.85 cm asc Aorta Diam: 2.8 cm EDV(MOD-sp2): 101.0 ml EF (MOD-bp): 62.9 % EF(MOD-sp2): 65.7 % ESV(MOD-sp2): 34.6 ml LA Vol Index: 14.0 ml/m? LVLd ap2: 8.6 cm LVLs ap2: 7.6 cm Echocardiology Report Electronically signed by: Miguel Wells MD 02/17/2024, 6: 44 AM FINAL REPORT Dictated: 02/12/2024 11:07 am Miguel Wells MD. Signed (Electronic Signature): 02/17/2024 6:44 am Signed by: Miguel Wells MD Transcribed by: [facility] Technologist: MAGGIE [facility] 12-10-2023 Evaluation note Encounter Date Diagnosis Assessment Notes Nov, Trigger finger, left middle finger (ICD-10 - M65.332) This appears to trigger finger. We discussed the cause of this condition and the treatment options. We discussed stretching of the finger as well as massage of the palmar MCP region. We discussed the use of cortisone injection into the palmar aspect of the hand at the trigger site can be helpful in relieving painful symptoms. We also discussed the option of surgical release which can eliminate the problem. We performed 2/1cc marcaine/40mg kenalog cortisone injection into the palmar aspect of the finger near at the A1 tracy under sterile technique. The patient tolerated this well without complication. We discussed that the finger may feel numb and tingle for hours after this injection. Nov, Trigger finger, left ring finger (ICD-10 - M65.342) We performed 2/1cc marcaine/40mg kenalog cortisone injection into the palmar aspect of the finger near at the A1 tracy under sterile technique. The patient tolerated this well without complication. We discussed that the finger may feel numb and tingle for hours after this injection. [employer] Other 11-30-2023 Evaluation + Plan note Future Scheduled Tests Radiology* ECG Stress Exercise 10/24/23 [facility] 04-14-2023 [facility] Future Appointments Appointment Date:04/25/2023 07:40:00 AM Scheduled Provider:Zach Hannah MD Location:[facility] Appointment Type: Open Diagnostic Tests Pending * Testosterone F&T 03/26/23 Future Scheduled Tests Radiology* US Extremity Non-Vascular Limited Right [facility]23 [facility]ments Appointment Date:04/25/2023 07:40:00 AM Scheduled Provider:Zach Hannah MD Location:[facility] Type: [facility] Future Appointments Appointment Date:01/27/2024 07:15:00 AM Scheduled Provider:Zach Hannah MD Location:[facility] Appointment Type: Open Appointment Date:04/22/2024 03:45:00 PM Scheduled Provider:Miguel Wells MD [facility]iology Follow Up (FT) Future Scheduled Tests Radiology* Echo Transthoracic Complete 01/24/24 * NM Myocardial Spect Rest/Stress 2 Day 01/24/24 * ECG Stress Exercise 10[facility]24/23 [facility] Future App[facility]ments Appointment Date:08/03/2024 07:15:00 AM Scheduled Provider:Zach Hannah MD Location:[facility] Appointment Type: Open Future Scheduled Tests Radiology* ECG Stress Exercise 10/24/23 [facility] assessment information available [facility] Work Phone: History and physical note Author Ortega Cabrera [facility] March 08, 2023 10:57am Note Date/Time March 08, 2023 10: 57am [facility] [address] [place] [address] Gastroenterology H&P Signed Patient: Nichole Barillas MR#: [id number] : 1970 Acct:[id number] Age/Sex: 52 / M Adm Date: 3 Loc: Room: Type: [facility] Attending Dr: Ortega Cabrera MD Copies to: MD Abbi Ceja MD~ Date of Service: 03/08/2023 HISTORY & PHYSICAL: Patient's history with special attention to the cardiovascular, pulmonary systems and the current problem was reviewed with the patient immediately prior to the procedure. Present medications and doses reviewed in the EMR. Allergies and pertinent laboratory tests were also reviewedat this time in the EMR. The physical examination, as below, was then performed. Indication, assessment and HPI: This is a 52-year-old male who presents for screening colonoscopy Family history of GI malignancy? No PHYSICAL EXAMINATION Mouth and Pharynx : Moist mucus membranes, normal dentition Cardiac: Regular rate, regular rhythm Pulmonary: Clear to auscultation bilaterally, no wheezing Neurological: Alert and oriented x3, no focal deficits noted Abdomen: Abdomen soft, non-tender REVIEW OF SYSTEMS Constitutional: Denies malaise, fevers Cardiovascular: Denies chest pain, palpitations Respiratory: Denies shortness of breath, wheezing Gastrointestinal: Per HPI Genitourinary: Denies dysuria, polyuria Musculoskeletal: Denies joint swelling, joint stiffness Neurological: Denies numbness, tingling Integumentary: Denies rashes, skin lesions Endocrine: Denies fatigue, weight loss Written informed consent obtained from the patient. Risks (including but not limited to perforation, infection, bloating, bleeding, need for emergent surgeryand loss of life), benefits and alternatives explained and questions answered. The patient verbalized understanding. Based on history patient is an appropriate candidate for the procedure. Ortega Cabrera MD Documented By: Ortega Cabrera MD 03/08/231056 Signed By: <Electronically signed by Ortega Cabrera MD> 03/08/23 105 [facility] Work Phone: [employer] general Narrative - Reported* Type Description Date Medical History Dysphagia Medical History cough Surgical History rt hand tendon surgery Surgical History sinus surgery x 2 Hospitalization History as above [employer] Other Hospital course Narrative No data available for this section [facility] Additional Instructions DISCHARGE INSTRUCTIONS FOR COLONOSCOPY WHAT TO EXPECT: - You may feel full, gassy or cramping after your procedure. In some cases, this may be from a few hours to a day. Walking may help relieve the discomfort. - If you have polyp(s) removed you may note some minor bloody discharge after your first bowel movements. - You should begin to recover from anesthesia within 1 hour of the procedure, however may feel groggy for the next 24 hours. DO's AND DON'Ts: - Call your doctor right away if you have a hard abdomen, severe pain, are passing lots of bright red blood or clots. - Call your doctor if you develop any rashes, hives or difficulty breathing. - Let your doctor know if you have not had a bowel movement by 3 days after your procedure. - If you take 81 mg aspirin for your heart it is safe to resume this medication. - If you take other blood thinner medications your doctor will instruct you when these can safely be resumed. - Do NOT drive for 24 hours. - Do NOT operate machinery such as power tools, lawn mowers, snow blowers, sewing machines, etc. for 24 hours. - Avoid alcoholic beverages and drugs for allergies, nerves, or sleep. - Do NOT stay alone. Do NOT leave your child unattended. - Do NOT make important personal or business decisions or sign any legal documents. - Eat solid foods and drink liquids in smaller amounts than usual until normal appetite returns. If you should experience an upset stomach, liquids high in sugar content (soda, Hernan-Aid, non-acid juices) are recommended. - You can resume normal activities tomorrow. FOLLOW UP & RECOMMENDATIONS: -Follow-up with Dr. Cabrera as needed -Notify the doctor if you have any problems. -Repeat colonoscopy in 10 years. -Follow up with PCP. -Office number [phone].[facility] Work Phone: Hospital Discharge instructions No data available for this section [facility] No data available for this section [facility] Summary Purpose Family History No Family History Records Found Relationship Condition Age at Onset Recorded Date/T freya Not Specified No pertinent family history Unknown Advance Directives No Advanced Directives Records Found Advance Directive Response Recorded Date/ Time Advance Directives No February 21, 2 022 7:32am Chief Complaint and Reason for Visit Chief Complaint Screening Additional Source Comments (unrecognized sect ion and content) No Status Records FoundNo Status Records FoundNo Status Records FoundNo Status Records FoundNo Status Records FoundNo Status Records FoundNo Status Records FoundNo Status Records FoundNo Status Records Found INFORMATION SOURCE (unrecogn ized section and content) DATE CREATED AUTHOR 09/23/2022 [facility] DATE CREATED AUTHOR AUTHOR'S ORGANIZ ATION 03/09/2023 [facility] DATE CREATED AUTHOR AUTHOR'S ORGANIZ ATION 07/03/2024 [facility] DATE CREATED AUTHOR AUTHOR'S ORGANIZ ATION 08/05/2024 [facility] DATE CREATED AUTHOR AUTHOR'S ORGANIZ ATION 10/12/2024 [facility] Care Teams (unrecognized sec tion and content) Team Status: Active Member Role Status Dates Abbi Dempsey MD Primary Care Provider Active Team Status: Inactive Member Role Status Dates Abbi Dempsey MD Primary Care Provider Active Ortega Cabrera MD Attending Provider Active REASON FOR VISIT (unrecogniz ed section and content) Left Hand Pain FOR RECORDS PERTAINING TO PATIENTS WHO ARE OR HAVE BEEN ENROLLED IN A CHEMICAL DEPENDENCY/SUBSTANCEABUSE PROGRAM, SOME INFORMATION MAY BE OMITTED. This clinical summary was aggregated from multiple sources. Caution should be exercised in using it in the provision of clinical care. This summary normalizes information from multiple sources, and as a consequence, information in this document may materially change the coding, format and clinical context of patient data. In addition, data may be omitted in some cases. CLINICAL DECISIONS SHOULD BE BASED ON THE PRIMARY CLINICAL RECORDS. [employer] provides no warranty or guarantee of the accuracy or completeness of information in this document.
== END 2024-10-12 08:26 | disposition home or self-care (01) ==
LOC: EC 08:25
PROVIDERS: PCP Family Medicine; Visit Provider Orthopaedic Surgery
DX: M25.512 Pain in left shoulder (principal)
CPT/HCPCS: 73030

== ENCOUNTER 2024-10-30 07:22 | Outpatient (OUT) | payer BC, SELFPAY ==
--- OUTSIDE RECORDS SUMMARY | 2024-10-30 07:24 | XMS_ITS | CCD ---
Author Organization [facility] Care Team Providers Care Nursing Specialist Name Role Phone KE, DR ABBI Camarena Admitting Unavailable DEMPSEY, DR ABBI Camarena Attending Unavailable DEMPSEY, DR ABBI Camarena Consulting Unavailable DEMPSEY, DR ABBI Camarena Primary Care Unavailable DEMPSEY, DR ABBI Camarena Consulting Unavailable DEMPSEY, DR ABBI Camarena Admitting Unavailable DEMPSEY, DR ABBI Camarena Attending Unavailable DEMPSEY, DR ABBI Camarena Primary Care Unavailable [facility] Consulting Unavailable KE, DR ABBI Camarena Admitting Unavailable DEMPSEY, DR ABBI Camarena Attending Unavailable DEMPSEY, DR ABBI Camarena Consulting Unavailable DEMPSEY, DR ABBI Camarena Primary Care Unavailable DEMPSEY, DR ABBI Camarena Primary Care Unavailable DEMPSEY, DR ABBI Camarena Attending Unavailable DEMPSEY, DR ABBI Camarena Admitting Unavailable DEMPSEY, DR ABBI Camarena Consulting Unavailable [place], DR BEN Vazquez Consulting Unavailable DEMPSEY, DR ABBI Camarena Primary Care Unavailable DEMPSEY, DR ABBI Camarena Attending Unavailable DEMPSEY, DR ABBI Camarena Admitting Unavailable DEMPSEY, DR ABBI Camarena Consulting Unavailable DOMINIQUEEBER, DR LORNE Patel Consulting Unavailable KE, DR ABBI Camarena Primary Care Unavailable VALDEMAR KING Admitting Unavailable Lorne Go Consulting Unavailable VALDEMAR KING Attending Unavailable VALDEMAR KING Consulting Unavailable KE, DR ABBI Camarena Attending Unavailable DEMPSEY, DR ABBI Camarena Admitting Unavailable DEMPSEY, DR ABBI Camarena Consulting Unavailable KE, DR ABBI Camarena Primary Care Unavailable DEMPSEY, DR ABBI Camarena Admitting Unavailable DEMPSEY, DR ABBI Camarena Attending Unavailable DEMPSEY, DR ABBI Camarena Consulting Unavailable KE, DR ABBI Camarena Primary Care Unavailable Ke, MD Abbi Camarena Primary Care Provider [phone] MD Ortega Cabrera Attending Provider [phone] Ortega Cabrera Attending Unavailable Ortega Cabrera Admitting Unavailable Abbi Dempsey Primary Care Unavailable Zach Hannah Primary Care Physician [phone] [place] Unavailable MICHELLE POOL Attending Unavailable MICHELLE POOL Attending Unavailable Zach Hannah Attending Unavailable NONE, XXXX Referring Unavailable Miguel Wells Admitting Unavaila Miguel Santa Attending Unavaila Zach Montano Referring Unavailable Miguel Wells Attending Miguel Warren Admitting Unavaila Miguel Santa Consulting Unavaila Miguel Santa Attending Miguel Warren Referring UnavailMD Miguel Boateng Consulting Unava ilable Miguel Wells Consulting Unavaila Zach Montano Admitting Unavailable Zach Hannah Attending Unavailable Zach Hannah Attending Unavailable Zach Hannah Attending Unavailable Zach Hannah Attending Unavailable Zach Hannah Attending Unavailable Zach Hannah Admitting Unavailable Zach Hannah Attending Unavailable Zach Hannah Attending Unavailable Medications Current [...] Start: 03-25-2023 fluticasone Na cheyenne 0.05 mg/inh [place] 2 spray(s), Nasal, Daily, 16 gram, Refill(s) [...] Interpretation Reference Range Facility Ambulatory Visit Summaryon 1 12-12-2023 Ambulatory Visit Summary Ambulatory Visit Summary NICHOLE BARILLAS :1970 Visit Date:10/12/2024 Ambulatory Visit Instructions Your Diagnosis Biceps tendon tear BMI 33.0-33.9,adult Exogenous obesity Snuff user Your Care Team Attending Physician - Zach Hannah MD. Primary Care Physician - Zach Hannah MD. This Is Your Medications List Contact prescribing physician if questions or concerns albuterol (ProAir HFA) diclofenac (diclofenac sodium 75 mg Oral EC Tab) fluticasone nasal (Xhance 93 mcg/inh nasal spray) Procedures Performed Colonoscopy, EGD - Esophagogastroduodeno scopy, Right hand, Sinus. Discharge Vitals Temperature (Temporal Artery) 35.9 ???C Heart Rate (Peripheral) 68 Respiratory Rate 16 Blood Pressure 124/82 Height 193 cm Height 76 in Weight 125.8 kg Weight 277.341 lb BMI 33.77 Medications What How Much When Instructions Unchanged albuterol (ProAir HFA) 2 Puffs Inhalation Every 4 hours Contact prescribing physician if questions or concerns Unchanged diclofenac (diclofenac sodium 75 mg Oral EC Tab) 1 Tablets By Mouth 2 times a day Contact prescribing physician if questions or concerns Unchanged fluticasone nasal (Xhance 93 mcg/ inh nasal spray) 1 Sprays Nasal Inhalation 2 times a day each nostril Contact prescribing physician if questions or concerns Allergies No Known Allergies Problems Ongoing - Any problem that you are currently receiving treatment for. Asthma Biceps tendon tear Fatigue Gastroesophageal reflux disease without esophagitis Hiatal [...] you for choosing us for your care. Education Materials BMI for Adults Body mass index (BMI) is a number found using a person's weight and height. BMI can help tell how much of a person's weight is made up of fat. BMI does not measure body fat directly. It is used instead of tests that directly measure body fat, which can be difficult and expensive. What are BMI measurements used for? BMI is useful to: ??? Find out if your weight puts you at higher risk for medical problems. ??? Help recommend changes, such as in diet and exercise. This can help you reach a healthy weight. BMI screening can be done again to see if these changes are working. How is BMI calculated? Your height and weight are measured. The BMI is found from those numbers. This can be done with U.S. or metric measurements. Note that charts and online BMI calculators are available to help you find your BMI quickly and easily without doing these calculations. To calculate your BMI in U.S. measurements: 1. Measure your weight in pounds (lb). 2. Multiply the number of pounds by 703. ??? So, for an adult who weighs 150 lb, multiply that number by 703: 150 x 703, which equals 105,450. 3. Measure your height in inches. Then multiply that number by itself to get a measurement called inches squared. ??? So, for an adult who is 70 inches tall, the inches squared measurement is 70 inches x 70 inches, which equals 4,900 inches squared. 4. Divide the total from step 2 (number of lb x 703) by the total from step 3 (inches squared): 105,450 ??? 4,900 = 21.5. This is your BMI. To calculate your BMI in metric measurements: 1. Measure your weight in kilograms (kg). ??? For this example, the weight is 70 kg. 2. Measure your height in meters (m). Then multiply that number by itself to get a measurement called meters squared. ??? So, for an adult who is 1.75 m tall, the meters squared measurement is 1.75 m x 1.75 m, which equals 3.1 meters squared. 3. Divide the number of kilograms (your weight) by the meters squared number. In this example: 70 ??? 3.1 = 22.6. This is your BMI. What do the results mean? BMI charts are used to see if you are underweight, normal weight, overweight, or obese. The following guidelines will be used: ??? Underweight: BMI less than 18.5. ??? Normal weight: BMI between 18.5 and 24.9. ??? Overweight: BMI between 25 and 29.9. ??? Obese: BMI of 30 or above. BMI is a tool and cannot diagnose a condition. Talk with your health care provider about what your BMI means for you. Keep these notes in mind: ??? Weight includes fat and muscle. Someone with a muscular build, such as an athlete, may have a BMI that is higher than 24.9. In cases like these, BMI is not a correct measure of body fat. ??? If you have a BMI of 25 or higher, your provider may need to do more testing to find out if excess body fat is the cause. ??? BMI is measured the s (more content not included)... Normal [facility] Family Medicine Office/Clini c Noteon 10-12-2024 Family Medicine Office/Clinic Note Family Medicine Office/Clinic Note HPI Staff Nichole is a 54 year old male presenting for acute visit Acute: painful lump on right upper arm for 3 months Pain characteristics: Pain location: right arm, upper arm has noticed a loss of strength Intensity:310 Onset: 3 months, but getting bigger and causing achiness Medication used: nothing History of Present Illness Patient presents for a month history of a bulge in the left biceps region. Patient states he thought it was a cyst. He states it is grown and has become slightly tender to palpation. Patient states he also is having issues with movement of the left arm. Patient states he cannot put on or take off his shirt. All hurts in the biceps and in the anterior shoulder. Patient believes he may have caused an issue when he was turning a pipe at work. Patient states at that time he felt a pop. Patient denies any bruising after this. Review of Systems PHQ Score Initial Depression Screen Score: 0 SCORE Physical Exam Vitals & Measurements T: 35.9 ???C(Temporal Artery) HR: 68(Peripheral) RR: 16 BP: 124/82 SpO2: 95% HT: 76 in HT: 193 cm WT: 125.8 kg WT: 277.341 lb BMI: 33.77 Possible mass in the upper biceps which is hard to delineate because of surrounding structures of adipose tissue. Patient looks to have less mass in the left biceps compared to the right. When the patient flexes his biceps I do not see a bulge. Assessment/Plan 1. Biceps tendon tear (S46.219A: Strain of muscle, fascia and tendon of other parts of biceps, unspecified arm, initial encounter) I am concerned that the patient has a biceps tendon tear. Called over to the orthopedics office and patient will be seen first thing this morning. 2. BMI 33.0-33.9,adult (Z68.33: Body mass index [BMI] 33.0-33.9, adult) BMI education added 3. Exogenous obesity (E66.09: Other obesity due to excess calories) Diet and exercise advised 4. Snuff user (Z72.0: Tobacco use) Encouraged nicotine cessation. Total time spent preparing for the encounter, evaluating and assessing the patient, documenting the visit, and ordering appropriate follow-up work was 30 minutes. Follow-up No qualifying data available Patient Education BMI for Adults Problem List/Past Medical History Ongoing Asthma Biceps tendon tear Fatigue Gastroesophageal reflux disease without esophagitis Hiatal hernia Insomnia due to stress Knee pain, right Nasal polyp ARYAN (obstructive sleep apnea) Physical exam Polyarthritis Prepatellar bursitis Prostate cancer screening Radiculopathy Vitamin D deficiency Historical No qualifying data Procedure/Surgical History Colonoscopy, EGD - Esophagogastroduodeno scopy, Right hand, Sinus. Medications diclofenac sodium 75 mg Oral EC Tab, 75 mg= 1 tab(s), Oral, BID ProAir HFA, 2 puff(s), Inhalation, q4hr Xhance 93 mcg/inh nasal spray, 1 spray(s), Nasal, BID Allergies No Known Allergies Social History Alcohol Current. Beer, Wine, Liquor. 1-2 times per month., 10/12/2024 Substance Abuse - Denies Substance Abuse, 03/25/2023 Never., 10/12/2024 Tobacco - Denies Tobacco Use, 01/24/2024 Never (less than 100 in lifetime), snuff Tobacco Use:., 10/12/2024 Family History Heart disease: Father. Rheumatoid arthritis: Father. Immunizations Vaccine Date Status Comments influenza virus vaccine, inactivated 10/24/2023 Given SARS-CoV-2 (COVID-19) mRNAMUL.ORD![id number] 11/06/2022 Recorded 2023-03-25: TPV50 influenza virus vaccine, [...] influenza virus vaccine, inactivated 10/10/2013 Recorded Normal [facility] Comment on above: Result Comment: Elec tronically Signed By: Zach Hannah MD\.br\Date and Time Signed: 10/12/24 08:16 EST Ambulatory Visit Summaryon 0 08-03-2024 Ambulatory Visit [...] for choosing us for your care. Normal [facility] CBC w/ Auto Diffon 4 Basophils/100 WBC (Bld) 0.8 % Normal 0.0-2.0 [facility] Comment on above: Performed By: #### 2 [id number] #### [facility] [address] [place] [address] Basophils/Leukocytes Auto (Bld) [Pure # fraction] 0.0 E9/L Normal 0.0-0.2 [facility] Comment on above: Performed By: #### 2 [id number] #### [facility] [address] [place] [address] Eosinophils (Bld) [#/Vol] 0.3 E9/L Normal 0.0-0.5 [facility] Comment on above: Performed By: #### 2 [id number] #### [facility] [address] [place] [address] Eosinophils/100 WBC (Bld) 6.7 % Normal 0.0-8.0 [facility] Comment on above: Performed By: #### 2 [id number] #### [facility] [address] [place] [address] Erythrocyte distribution width (RBC) [Ratio] 13.2 % Normal 10.9-14.2 [facility] Comment on above: Performed By: #### 2 [id number] #### [facility] [address] [place] [address] Hematocrit (Bld) [Volume fraction] 44.7 % Normal 37.7-49.0 [facility] Comment on above: Performed By: #### 2 [id number] #### [facility] [address] [place] [address] Hemoglobin (Bld) [Mass/Vol] 14.7 g/dL Normal 13.5-17.5 [facility] Comment on above: Performed By: #### 2 [id number] #### [facility] [address] [place] [address] Lymphocytes (Bld) [#/Vol] 1.8 E9/L Normal 1.0-4.0 [facility] Comment on above: Performed By: #### 2 [id number] #### [facility] [address] [place] [address] Lymphocytes/100 WBC (Bld) 38.6 % Normal 14.0-50.0 [facility] Comment on above: Performed By: #### 2 [id number] #### [facility] [address] [place] [address] MCH (RBC) [Entitic mass] 29.8 pg Normal 27.0-34.0 [facility] Comment on above: Performed By: #### 2 [id number] #### [facility] [address] [place] [address] MCHC (RBC) [Mass/Vol] 32.9 g/dL Normal 31.4-36.0 [facility] Comment on above: Performed By: #### 2 [id number] #### [facility] [address] [place] [address] MCV (RBC) [Entitic vol] 90.6 fL Normal 80.0-100.0 [facility] Comment on above: Performed By: #### 2 [id number] #### [facility] [address] [place] [address] Monocytes (Bld) [#/Vol] 0.4 E9/L Normal 0.2-1.0 [facility] Comment on above: Performed By: #### 2 543726 #### [facility] [address] [place] [address] Neutrophils (Bld) [#/Vol] 2.0 E9/L Normal 2.0-7.5 [facility] Comment on above: Performed By: #### 2 [id number] #### [facility] [address] [place] [address] Neutrophils/100 WBC (Bld) 44.3 % Normal 36.0-75.0 [facility] Comment on above: Performed By: #### 2 [id number] #### [facility] [address] [place] [address] Platelet mean volume (Bld) [Entitic vol] 9.7 fL Normal 6.4-10.8 [facility] Comment on above: Performed By: #### 2 [id number] #### [facility] [address] [place] [address] Platelets (Bld) [#/Vol] 200.0 E9/L Normal 150.0-500.0 [facility] Comment on above: Performed By: #### 2 992043 #### [facility] [address] [place] [address] RBC (Bld) [#/Vol] 4.9 E12/L Normal 4.3-5.9 [facility] Comment on above: Performed By: #### 2 777215 #### [facility] [address] [place] [address] WBC corrected for nucl RBC Auto (Bld) [#/Vol] 4.6 E9/L Normal 4.0-11.0 [facility] Comment on above: Performed By: #### 2 341549 #### [facility] [address] [place] [address] CHEMISTRYOrdered By: SYSTEM SYSTEM on 08-03-2024 Albumin [...] used for this result was chemiluminescence using [employer]'s Access Hybritech PSA reagent. Protein [Mass/Vol] 7.4 [...] 08-03-2024 Albumin [Mass/Vol] 4.1 g/dL Normal 3.3-5.0 [facility] Comment on above: Performed By: #### 2 [id number] #### [facility] [address] [place] [address] Albumin/Globulin (S) [Mass conc ratio] 1.2 Normal 1.1-2.2 [facility] Comment on above: Performed By: #### 2 [id number] #### [facility] [address] [place] [address] ALP [Catalytic activity/Vol] 49 Int._Unit/L Normal 21-98 [facility] Comment on above: Performed By: #### 2 [id number] #### [facility] [address] [place] [address] ALT No additional P-5'-P [Catalytic activity/Vol] 15 Int._Unit/L Normal 6-46 [facility] Comment on above: Performed By: #### 2 832107 #### [facility] [address] [place] [address] Anion gap [Moles/Vol] 8 mmol/L Normal 6-16 [facility] Comment on above: Performed By: #### 2 844122 #### [facility] [address] [place] [address] AST [Catalytic activity/Vol] 14 Int._Unit/L Normal 5-43 [facility] Comment on above: Performed By: #### 2 897269 #### [facility] [address] [place] [address] Bilirubin [Mass/Vol] 0.5 mg/dL Normal 0.0-1.1 [facility] Comment on above: Performed By: #### 2 271281 #### [facility] [address] [place] [address] Calcium [Mass/Vol] 9.3 mg/dL Normal 8.9-11.1 [facility] Comment on above: Performed By: #### 2 569989 #### [facility] [address] [place] [address] Chloride [Moles/Vol] 105 mmol/L Normal 101-111 [facility] Comment on above: Performed By: #### 2 839975 #### [facility] [address] [place] [address] CO2 [Moles/Vol] 30 mmol/L Normal 21-31 [facility] Comment on above: Performed By: #### 2 610632 #### [facility] [address] [place] [address] Creatinine [Mass/Vol] 0.9 mg/dL Normal 0.5-1.3 [facility] Comment on above: Performed By: #### 2 [id number] #### [facility] [address] [place] [address] Globulin (S) [Mass/Vol] 3.3 g/dL Normal 1.4-4.0 [facility] Comment on above: Performed By: #### 2 [id number] #### [facility] [address] [place] [address] Glucose [Mass/Vol] 103 mg/dL Normal 55-199 [facility] Comment on above: Performed By: #### 2 195650 #### [facility] [address] [place] [address] Potassium [Moles/Vol] 4.3 mmol/L Normal 3.5-5.3 [facility] Comment on above: Performed By: #### 2 471796 #### [facility] [address] [place] [address] Protein [Mass/Vol] 7.4 g/dL Normal 6.0-7.8 [facility] Comment on above: Performed By: #### 2 [id number] #### [facility] [address] [place] [address] Sodium [Moles/Vol] 139 mmol/L Normal 135-145 [facility] Comment on above: Performed By: #### 2 143591 #### [facility] [address] [place] [address] Urea nitrogen [Mass/Vol] 11 mg/dL Normal 5-21 [facility] Comment on above: Performed By: #### 2 148087 #### [facility] [address] [place] [address] Urea nitrogen/Creatinine [Mass ratio] 12 No Units Normal 10-20 [facility] Comment on above: Performed By: #### 2 240721 #### [facility] [address] [place] [address] Family Medicine Office/Clini c Noteon 08-03-2024 Family Medicine Office/Clinic Note Family Medicine Office/Clinic Note HPI Staff Nichole (Johny) is a 54 year old male presenting [...] virus vaccine, inactivated 10/24/2023 Given SARS-CoV-2 (COVID-19) mRNAMUL.[id number] 11/06/2022 Recorded 2023-03-25: TPV50 influenza virus vaccine, [...] influenza virus vaccine, inactivated 10/10/2013 Recorded Normal [facility] Comment on above: Result Comment: Elec tronically Signed By: Camden SIMMS, Zach Moore.br\Date and Time Signed: 08/03/24 07:41 EDT HEMATOLOGYOrdered [...] 08-03-2024 Cholesterol [Mass/Vol] 170 mg/dL Normal 120-200 [facility] Comment on above: Performed By: #### 2 [id number] #### [facility] [address] [place] [address] Cholesterol in HDL [Mass/Vol] 39 mg/dL Invalid Interpretation Code [facility] Comment on above: Result Comment: '>= 60 LOW RISK' '<= 40 HIGH RISK' Performed By: #### 2 [id number] #### [facility] [address] [place] [address] Cholesterol in LDL [Mass/Vol] 128 mg/dL Normal <=129 [facility] Comment on above: Performed By: #### 2 583180 #### [facility] [address] [place] [address] Cholesterol in VLDL [Mass/Vol] 23 mg/dL Normal 7-40 [facility] Comment on above: Performed By: #### 2 214511 #### [facility] [address] [place] [address] Triglyceride [Mass/Vol] 113 mg/dL Normal <=149 [facility] Comment on above: Performed By: #### 2 305116 #### [facility] [address] [place] [address] PSA Screen, Totalon 08-03-20 24 Prostate specific Ag [Mass/Vol] 0.6 ng/mL Normal 0.1-3.5 [facility] Comment on above: Result Comment: The concentration of PSA determined by different manufacturers can vary due to differences in assay methods and reagent specificity. Values obtained from different assay methods cannot be used interchangeably. The methodology used for this result was chemiluminescence using [employer]'s Access Hybritech PSA reagent. Performed By: #### 1 [id number] #### [facility] [address] [place] [address] eGFRon 08-03-2024 eGFR 100 mL/min/1.73 m2 Normal >=59 [facility] Comment on above: Order Comment: Order added by Discern Expert. Performed By: #### 1 [id number] #### [facility] [address] [place] [address] Heart and Vascular Office/Cl inic Noteon 04-27-2024 [...] after patient or guardian consented to allow [facility] to record this visit. CARMEN auto radiator specialist and provider reviewed before signing. CARMEN: Karla Dewitt Portions of this record may have been created with voice recognition artificial intelligence software, specifically [employer], [employer] and or INFIMET. Substitutions may have occurred due to the [...] Family History (more content not included)... Normal [facility] Comment on above: Result Comment: Elec tronically Signed By: Russell SIMMS, Miguel Swan\.br\Date and Time Signed: 04/27/24 10:09 EDT\.br\Electronically Co-Signed By: Monse Edward\.br\Date and Time Co-Signed: 04/22/24 17:13 EDT Consent for Treatmenton 03-26 Consent for Treatment [id number]#1 .00TIFF [facility] Physician Orderon 04-22-2024 Physician Order [id number] #1.00TIFF [facility] Heart and Vascular Office/Cl inic [...] 30s and 40s. He was sent to [facility] to an customer supply coordinator to check his pituitary gland. He used [...] with voice recognition artificial intelligence software, specifically [employer], [employer] and or INFIMET. Substitutions may have occurred due to the inherent limitations of voice recognition and artificial intelligence software. ATTESTATION: Documentation services were performed after patient or guardian consented to allow [facility] to record this visit. CARMEN auto radiator specialist and provider reviewed before signing. CARMEN: Monse Edward. Follow-up No qualifying data available Problem List/Past [...] - D (more content not included)... Normal [facility] Comment on above: Result Comment: Elec tronically [...] (Electronic Signature): 02/20/2024 6:40 am Signed by: Russell SIMMS, Miguel Swan Transcribed by: ronak Technologist: ARIADNE Technical Comments Rest Dose (mCi Tc99m Cardiolite): 30.0 Normal [facility] Stress EKG Tracingson 2023 Stress EKG Tracings [id number]# 1.00TIFF [facility] Consent for Treatmenton 01-24 Consent for Treatment [id number]#1 .00TIFF [facility] Consultation Noteon 01-31-20 24 Consultation Note [id number]#1 .00TIFF [facility] Ambulatory Visit Summaryon 0 01-27-2024 [...] Follow-Up Appointments Saturday 3:45 PM EDT With: Russell SIMMS, Miguel Swan Where: Cardiology Clinic Saturday 7:15 AM EDT With: Zach Hannah MD Where: [facility] Family [facility] [place] Normal [facility] Electrocardiogram - 12 leado n 01-27-2024 Electrocardiogram - 12 lead [id number]# 1.00TIFF Normal [facility] Family Medicine Office/Clini c Noteon 01-27-2024 Family Medicine Office/Clinic Note HPI Staff Nichole is a 53 year old male presenting for 3 month follow up fatigue, vit D def. ANDREA stress test for family hx heart Had first stress test, saw Dr Wells and he's going to do a chemical [...] virus vaccine, inactivated 10/24/2023 Given SARS-CoV-2 (COVID-19) mRNAMUL.ORD![id number] 11/06/2022 Recorded 2023-03-25: TPV50 influenza virus vaccine, [...] Recorded influenza virus vaccine, inactivated 10/10/2013 Recorded [facility] Comment on above: Result Comment: Elec tronically Signed By: Camden SIMMS, Zach Moore.br\Date and Time Signed: 01/27/24 07:59 EST Insurance Correspondenceon 0 01-27-2024 Insurance Correspondence [id number]# 1.00TIFF [facility] Patient Educationon 01-27-20 Patient Education [...] these instructions at home: Medicines ? Take mwjj-tro-gwwjfux and prescription medicines only as told by [...] the National Suicide Prevention Lifeline at or 433. This is open 24 hours a day. ? Text the Crisis Text Line at 758988. Summary ? If you have fatigue, you [...] provider. Document Revised: 09/03/2022 Document Reviewed: 09/03/2022 [employer] Patient Education ? 2022 [employer]. Nutrition BMI for Adults What is BMI? [...] ? Promoti (more content not included)... Normal [facility] Physician Orderon 01-27-2024 Physician Order [id number]# 1.00TIFF [facility] Physician Referralon 024 Physician Referral [id number]# 1.00TIFF [facility] Cardiovascular Reporton 11-25 Cardiovascular Report [id number]#1. 00TIFF [facility] Ambulatory Visit Summaryon 12-24-2022 Ambulatory Visit Summary NICHOLE BARILLAS :1970 Visit Date:10/24/2023 Ambulatory Visit Instructions Your [...] you for choosing us for your care. [facility] Consent for Flu Vaccineon Consent for Flu Vaccine [id number]#1 .00TIFF [facility] Family Medicine Office/Clini c Noteon 10-24-2023 Family Medicine Office/Clinic Note HPI Staff Everett is a 53 year old male presenting [...] fatigue) - Still struggling. - Fhx of CA in his father in his 50's. - [...] Flu shot given Ordered: FIRST VACCINE w/o Referral Rn Admin Charge 07550 8. ARYAN (obstructive sleep apnea) (G47.33: Obstructive [...] virus vaccine, inactivated 10/24/2023 Given SARS-CoV-2 (COVID-19) mRNAMUL.ORD![id number] 11/06/2022 Recorded 2023-03-25: TPV50 influenza virus vaccine, inactivated 10/25/2022 Recorded influenza virus vaccine, inactivated 10/24/2021 Recorded SARS-CoV-2 (COVID-19) mRNA BNT-162b2 vax 10/17/2021 Recorded 2023-03-25: TPV50 SARS-CoV-2 (COVID-19) mRNA BNT-162b2 vax 02/27/2021 Recorded SARS-CoV-2 (COVID-19) mRNA BNT-162b2 vax 02/06/2021 Recorded influenza virus vaccine, inactivated 08/08/2020 Recorded influenza virus vaccine, inactivated 09/10/2019 (more content not included)... Normal [facility] Comment on above: Result Comment: Elec tronically Signed By: Camden SIMMS, Zach Burgos\.br\Date and Time Signed: 10/24/23 08:47 EST Patient [...] numbers. This can be done either in Persian ([place] or metric measurements. Note that charts and online BMI calculators are available to help you find your BMI quickly and easily without having to do these calculations yourself. To calculate your BMI in Persian ([place] measurements: 1. Measure your weight in [...] for Disease Control and Prevention: www.cdc.gov ? [place] Heart [employer]: www.heart.org ? National Heart, Lung, and Blood [place]: www.nhlbi.nih.gov Summary ? Body mass index (BMI) is a number that is calculated from a person's weight and height. ? BMI may help estimate how much of a person's weight is composed of fat. BMI can help identify those who may be at higher risk for certain medical problems. ? BMI can be measured using Persian measurements or metric measurements. ? BMI charts are used to identify whether you are underweight, normal weight, overweight, or obese. This information is not intended to replace advice given to you by your health care provider. Make sure you discuss any questions you have with your health care provider. Document Revised: 08/03/2020 Document Reviewed: 06/10/2020 [employer] Patient Education ? 2022 [employer] Normal [facility] CHEMISTRYOrdered By: SYSTEM SYSTEM on 03-26-2023 25-hydroxyvitamin [...] 101 mL/min/1.73 m2 Normal >=59mL/min/1 .73 m2 FT Chem S Globulin (S) [Mass/Vol] 3.2 g/dL [...] 2.3 E9/L Normal 2.0 - 7.5 E9/L FT HemeAutoSS HEMATOLOGYOrdered By: Honey Fitzgerald on 03-26-2023 Erythrocyte distribution width (RBC) [Ratio] 13.1 % Normal 10.9 - 14.2 % FT HemeAutoSS Hematocrit (Bld) [Volume fraction] 44.8 % Normal 37.7 - 49.0 % FT HemeAutoSS Hemoglobin (Bld) [Mass/Vol] 14.7 g/dL Normal 13.5 - 17.5 gm/dL FT HemeAutoSS MCH (RBC) [Entitic mass] 29.0 pg Normal 27.0 - 34.0 pg FT HemeAutoSS MCHC (RBC) [Mass/Vol] 32.9 g/dL Normal 31.4 - 36.0 gm/dL FT HemeAutoSS MCV (RBC) [Entitic vol] 88.4 fL Normal 80.0 - 100.0 fL FT HemeAutoSS Platelet mean volume (Bld) [Entitic vol] 10.3 fL Normal 6.4 - 10.8 fL FTMC HemeAutoSS Platelets (Bld) [#/Vol] 208.0 E9/L Normal 150.0 - 500.0 E9/L FT HemeAutoSS RBC (Bld) [#/Vol] 5.1 E12/L Normal 4.3 - 5.9 E12/L FT HemeAutoSS WBC corrected for nucl RBC Auto (Bld) [#/Vol] 4.5 E9/L Normal 4.0 - 11.0 E9/L FT HemeAutoSS CT SINUSES WO CONon 09-19-20 CT SINUSES WO CON EXAMINATION: CT SINUSES [...] by: BEN HANLEY Date: 2022-09-19 08:57 Normal [facility] XR SINUSES 3 VIEWS OR GREATE Ricardo [...] to suggest acute sinusitis. Electronically authenticated by: LRONE GERONIMO Date: 2022-09-12 08:13 Normal [facility] BNPon 07-25-2022 Natriuretic peptide B (Bld) [Mass/Vol] 113.0 pg/mL Normal <=900.0 [facility] Comment on above: Performed By: #### B TAB MACHINE OPERATOR, CMP #### [facility] [address] [address] [address] Timo Mckenna CBC AUTO DIFFon 07-25-2022 BASO # 0.1 103/ul Normal 0.0-0.1 [facility] Comment on above: Performed By: #### C BC #### [facility] [address] [place] [address] Dr. Timo Mckenna Basophils/100 WBC (Bld) 0.4 % Normal 0.2-2.0 [facility] Comment on above: Performed By: #### C BC #### [facility] [address] [place] [address] Dr. Timo Mckenna EO # 0.0 103/ul Normal 0.0-0.7 [facility] Comment on above: Performed By: #### C BC #### [facility] [address] [place] [address] Dr. Timo Mckenna Eosinophils/100 WBC (Bld) 0.0 % Critically low 0.9-7.0 [facility] Comment on above: Performed By: #### C BC #### [facility] [address] [place] [address] Dr. Timo Mckenna Erythrocyte distribution width (RBC) [Ratio] 12.1 % Normal 11.0-15.0 [facility] Comment on above: Performed By: #### C BC #### [facility] [address] [place] [address] Dr. Timo Mckenna Hematocrit (Bld) [Volume fraction] 44.6 % Normal 42.0-54.0 [facility] Comment on above: Performed By: #### C BC #### [facility] [address] [address] [address] Timo Mckenna Hemoglobin (Bld) [Mass/Vol] 14.9 g/dL Normal 14.0-18.0 [facility] Comment on above: Performed By: #### C BC #### [facility] [address] [address] [address] Timo Mckenna IG # 0.39 10e3/ul Critically high 0.00-0.03 [facility] Comment on above: Performed By: #### C BC #### [facility] [address] [address] [address] Timo Mceknna IG % 3.4 % Critically high 0.0-0.5 [facility] Comment on above: Performed By: #### C BC #### [facility] [address] [address] [address] Timo Mckenna LYMPH # 1.4 103/ul Normal 1.2-3.8 [facility] Comment on above: Performed By: #### C BC #### [facility] [address] [address] [address] Timo Mckenna Lymphocytes/100 WBC (Bld) 12.2 % Critically low 20.5-60.0 [facility] Comment on above: Performed By: #### C BC #### [facility] [address] [address] [address] Timo Mckenna MANUAL DIFF REQ NO Normal [facility] Comment on above: Performed By: #### C BC #### [facility] [address] [address] [address] Timo Mckenna MCH (RBC) [Entitic mass] 29.4 pg Normal 25.9-34.0 [facility] Comment on above: Performed By: #### C BC #### [facility] [address] [address] [address] Timo Mckenna MCHC (RBC) [Mass/Vol] 33.4 g/dL Normal 29.9-35.2 [facility] Comment on above: Performed By: #### C BC #### [facility] [address] [address] [address] Timo Mckenna MCV (RBC) [Entitic vol] 88.1 fL Normal 80.0-94.0 [facility] Comment on above: Performed By: #### C BC #### [facility] [address] [address] [address] Timo Mckenna MONO # 0.8 103/ul Normal 0.3-0.8 [facility] Comment on above: Performed By: #### C BC #### [facility] [address] [address] [address] Timo Mckenna Monocytes/100 WBC (Bld) 7.3 % Normal 1.7-12.0 [facility] Comment on above: Performed By: #### C BC #### [facility] [address] [place] [address] Dr. Timo Mckenna NEUT # 8.8 103/ul Critically high 1.4-6.5 [facility] Comment on above: Performed By: #### C BC #### [facility] [address] [place] [address] Dr. Timo Mckenna Neutrophils/100 WBC (Bld) 76.7 % Critically high 43.0-75.0 [facility] Comment on above: Performed By: #### C BC #### [facility] [address] [address] [address] Timo Mckenna Platelet mean volume (Bld) [Entitic vol] 10.5 fL Normal 9.5-13.5 [facility] Comment on above: Performed By: #### C BC #### [facility] [address] [place] [address] Dr. Timo Mckenna PLT 261 103/ul Normal 150-450 [facility] Comment on above: Performed By: #### C BC #### [facility] [address] [address] [address] Timo Mckenna RBC 5.06 106/ul Normal 4.70-6.10 [facility] Comment on above: Performed By: #### C BC #### [facility] [address] [place], [place] [address] Dr. Timo Mckenna WBC 11.5 103/ul Critically high 4.0-11.0 [facility] Comment on above: Performed By: #### C BC #### [facility] [address] [place], [place] [address] Dr. Timo Mckenna CTA CHEST WO W CONon CTA CHEST WO W CON EXAMINATION: CTA [...] by: LORNE GO Date: 2022-07-25 18:20 Normal [facility] PROF 14(COMP METB)on Albumin [Mass/Vol] 3.4 g/dL Normal 3.4-5.0 [facility] Comment on above: Performed By: #### B TAB MACHINE OPERATOR, CMP #### [facility] [address] [place], [place] [address] Dr. Timo Mckenna Albumin/Globulin [Mass ratio] 0.9 {ratio} Normal [facility] Comment on above: Performed By: #### B TAB MACHINE OPERATOR, CMP #### [facility] [address] [address] [address] Timo Mckenna ALP [Catalytic activity/Vol] 53 U/L Normal 46-116 [facility] Comment on above: Performed By: #### B TAB MACHINE OPERATOR, CMP #### [facility] [address] [address] [address] Timo Mckenna ALT [Catalytic activity/Vol] 25 U/L Normal 16-63 [facility] Comment on above: Performed By: #### B TAB MACHINE OPERATOR, CMP #### [facility] [address] [address] [address] Timo Mckenna Anion gap [Moles/Vol] 13.7 mmol/L Normal [facility] Comment on above: Performed By: #### B TAB MACHINE OPERATOR, CMP #### [facility] [address] [address] [address] Timo Mckenna AST [Catalytic activity/Vol] 12 U/L Critically low 15-37 [facility] Comment on above: Performed By: #### B TAB MACHINE OPERATOR, CMP #### [facility] [address] [address] [address] Timo Mckenna Bilirubin [Mass/Vol] 0.3 mg/dL Normal 0.2-1.0 [facility] Comment on above: Performed By: #### B TAB MACHINE OPERATOR, CMP #### [facility] [address] [address] [address] Timo Mckenna Calcium [Mass/Vol] 8.5 mg/dL Normal 8.5-10.1 [facility] Comment on above: Performed By: #### B TAB MACHINE OPERATOR, CMP #### [facility] [address] [address] [address] Timo Mckenna Chloride [Moles/Vol] 103 mmol/L Normal 98-107 [facility] Comment on above: Performed By: #### B TAB MACHINE OPERATOR, CMP #### [facility] [address] [address] [address] Timo Mckenna CO2 [Moles/Vol] 26.8 mmol/L Normal 21.0-32.0 [facility] Comment on above: Performed By: #### B TAB MACHINE OPERATOR, CMP #### [facility] [address] [address] [address] Timo Mckenna Creatinine [Mass/Vol] 1.02 mg/dL Normal 0.70-1.30 [facility] Comment on above: Performed By: #### B TAB MACHINE OPERATOR, CMP #### [facility] [address] [address] [address] Timo Mckenna EGFR-AF ARGENTINE >60 Normal >=60 [facility] Comment on above: Performed By: #### B TAB MACHINE OPERATOR, CMP #### [facility] [address] [address] [address] Timo Mckenna EGFR-NON AF ARGENTINE >60 Normal >=60 [facility] Comment on above: Performed By: #### B TAB MACHINE OPERATOR, CMP #### [facility] [address] [place] [address] Dr. Timo Mckenna Globulin (S) [Mass/Vol] 3.8 g/dL Normal [facility] Comment on above: Performed By: #### B TAB MACHINE OPERATOR, CMP #### [facility] [address] [address] [address] Timo Mckenna Glucose [Mass/Vol] 119 mg/dL Critically high 74-106 [facility] Comment on above: Performed By: #### B TAB MACHINE OPERATOR, CMP #### [facility] [address] [place] [address] Dr. Timo Mckenna Potassium [Moles/Vol] 4.5 mmol/L Normal 3.5-5.1 [facility] Comment on above: Performed By: #### B TAB MACHINE OPERATOR, CMP #### [facility] [address] [address] [address] Timo Mckenna Protein [Mass/Vol] 7.2 g/dL Normal 6.4-8.2 [facility] Comment on above: Performed By: #### B TAB MACHINE OPERATOR, CMP #### [facility] [address] [address] [address] Timo Mckenna Sodium [Moles/Vol] 139 mmol/L Normal 136-145 [facility] Comment on above: Performed By: #### B TAB MACHINE OPERATOR, CMP #### [facility] [address] [address] [address] Timo Mckenna Urea nitrogen [Mass/Vol] 23.0 mg/dL Critically high 7.0-18.0 [facility] Comment on above: Performed By: #### B TAB MACHINE OPERATOR, CMP #### [facility] [address] [address] [address] Timo Mckenna Urea nitrogen/Creatinine [Mass ratio] 22.5 mg/mg Normal [facility] Comment on above: Performed By: #### B TAB MACHINE OPERATOR, CMP #### [facility] [address] [address] [address] Timo Mckenna Covid-19 PCR (CVDTB)on 06-26 SARS-CoV-2 (COVID-19) RNA AARON+probe Ql (Unsp spec) Detected Critically abnormal NOT DETECTED [facility] Comment on above: Result Comment: This test is not yet approved or cleared by the [place] FDA. When there are no FDA-approved or cleared tests available, and other criteria are met, FDA can make tests available under an emergency access mechanism called an Emergency Use Authorization (EUA). The EUA for this test is supported by the [place] of Health and Human Service's declaration that [...] longer be used). Performed By: #### C VDTBH #### [facility] [address] [address] [address] Timo Mckenna Covid-19 PCR (CVDTBH)on 06-26 SARS-CoV-2 (COVID-19) RNA AARON+probe Ql (Unsp spec) Not detected Normal NOT DETECTED [facility] Comment on above: Result Comment: This test is not yet approved or cleared by the [place] FDA. When there are no FDA-approved or cleared tests available, and other criteria are met, FDA can make tests available under an emergency access mechanism called an Emergency Use Authorization (EUA). The EUA for this test is supported by the [employer] of Health and Human Service's (HHS's) declaration [...] consistent with SARS-CoV-2. Performed By: #### C VDTB #### [facility] [address] [address] [address] Timo Mckenna HEMOGLOBINon 06-14-2022 Hemoglobin (Bld) [Mass/Vol] 14.1 g/dL Normal 14.0-18.0 [facility] Comment on above: Performed By: #### H GB ####[facility] [address] [address]Dr. Timo Mckenna XR CHEST 2 Von 05-21-2022 [...] KITA DANIELS Date: 2022-05-21 13:05 Normal [facility] CBC AUTO DIFFon 02-09-2022 BASO # 0.0 103/ul Normal 0.0-0.1 [facility] Comment on above: Performed By: #### C BC ####[facility] [address] [address]Dr. Timo Mckenna Basophils/100 WBC (Bld) 0.6 % Normal 0.2-2.0 [facility] Comment on above: Performed By: #### C BC ####[facility] [address] [address]Dr. Timo Mckenna EO # 0.2 103/ul Normal 0.0-0.7 [facility] Comment on above: Performed By: #### C BC ####[facility] [address] [address]Dr. Timo Mckenna Eosinophils/100 WBC (Bld) 3.6 % Normal 0.9-7.0 [facility] Comment on above: Performed By: #### C BC ####[facility] [address] [place], [place] [address]Dr. Timo Mckenna Erythrocyte distribution width (RBC) [Ratio] 12.3 % Normal 11.0-15.0 [facility] Comment on above: Performed By: #### C BC ####[facility] [address] [place], [place] [address]Dr. Timo Mckenna Hematocrit (Bld) [Volume fraction] 42.1 % Normal 42.0-54.0 [facility] Comment on above: Performed By: #### C BC ####[facility] [address] [place], [place] [address]Dr. Timo Mckenna Hemoglobin (Bld) [Mass/Vol] 13.6 g/dL Critically low 14.0-18.0 [facility] Comment on above: Performed By: #### C BC ####[facility] [address] [place], [place] [address]Dr. Timo Mckenna IG # 0.01 10e3/ul Normal 0.00-0.03 [facility] Comment on above: Performed By: #### C BC ####[facility] [address] [address]Dr. Timo Mckenna IG % 0.2 % Normal 0.0-0.5 [facility] Comment on above: Performed By: #### C BC ####[facility] [address] [place], [place] [address]Dr. Timo Mckenna LYMPH # 1.7 103/ul Normal 1.2-3.8 [facility] Comment on above: Performed By: #### C BC ####[facility] [address] [address]Dr. Timo Mckenna Lymphocytes/100 WBC (Bld) 32.9 % Normal 20.5-60.0 [facility] Comment on above: Performed By: #### C BC ####[facility] [address] [address]Dr. Timo Mckenna MANUAL DIFF REQ NO Normal [facility] Comment on above: Performed By: #### C BC ####[facility] [address] [address]Dr. Timo Bala MCH (RBC) [Entitic mass] 29.7 pg Normal 25.9-34.0 [facility] Comment on above: Performed By: #### C BC ####[facility] [address] [address]Dr. Timo Mckenna MCHC (RBC) [Mass/Vol] 32.3 g/dL Normal 29.9-35.2 [facility] Comment on above: Performed By: #### C BC ####[facility] [address] [address]Dr. Timo Mckenna MCV (RBC) [Entitic vol] 91.9 fL Normal 80.0-94.0 [facility] Comment on above: Performed By: #### C BC ####[facility] [address] [address]Dr. Timo Bala MONO # 0.5 103/ul Normal 0.3-0.8 [facility] Comment on above: Performed By: #### C BC ####[facility] [address] [address]Dr. Timo Bala Monocytes/100 WBC (Bld) 8.7 % Normal 1.7-12.0 [facility] Comment on above: Performed By: #### C BC ####[facility] [address] [place], [place] [address]Dr. Taramadai Bala NEUT # 2.8 103/ul Normal 1.4-6.5 [facility] Comment on above: Performed By: #### C BC ####[facility] [address] [address]Dr. Timo Mckenna Neutrophils/100 WBC (Bld) 54.0 % Normal 43.0-75.0 [facility] Comment on above: Performed By: #### C BC ####[facility] [address] [address]Dr. Timo Mckenna Platelet mean volume (Bld) [Entitic vol] 10.8 fL Normal 9.5-13.5 [facility] Comment on above: Performed By: #### C BC ####[facility] [address] [address]Dr. Timo Mckenna PLT 203 103/ul Normal 150-450 [facility] Comment on above: Performed By: #### C BC ####[facility] [address] [place], [place] [address]Dr. Timo Mckenna RBC 4.58 106/ul Critically low 4.70-6.10 [facility] Comment on above: Performed By: #### C BC ####[facility] [address] [place], [place] [address]Dr. Timo Mckenna WBC 5.3 103/ul Normal 4.0-11.0 [facility] Comment on above: Performed By: #### C BC ####[facility] [address] [place], [place] [address]Dr. Timo Mckenna CRPon 02-09-2022 CRP [Mass/Vol] mg/L Normal <=1.0 [facility] Comment on above: Performed By: #### T SH, FT3, BMP, CRP ####[facility] [address] [address]Dr. Timo Mckenna FREE T3on 02-09-2022 FREE T3 3.19 pg/mlL Normal 2.77-5.27 [facility] Comment on above: Performed By: #### T SH, FT3, BMP, CRP ####[facility] [address] [address]Dr. Timo Mckenna FREE T4on 02-09-2022 Free T4 [Mass/Vol] 1.06 ng/dL Normal 0.78-2.19 [facility] Comment on above: Performed By: #### F T4 #### [facility] [address] [address] [address] Timo Mckenna PROF CHEM 8 (BAS METB)on Anion gap [Moles/Vol] 12.9 mmol/L Normal [facility] Comment on above: Performed By: #### T SH, FT3, BMP, CRP ####[facility] [address] [address]Dr. Timo Mckenna Calcium [Mass/Vol] 8.4 mg/dL Critically low 8.5-10.1 [facility] Comment on above: Performed By: #### T SH, FT3, BMP, CRP ####[facility] [address] [place] [address]Dr. Timo Mckenna Chloride [Moles/Vol] 105 mmol/L Normal 98-107 [facility] Comment on above: Performed By: #### T SH, FT3, BMP, CRP ####[facility] [address] [place] [address]Dr. iTmo Mckenna CO2 [Moles/Vol] 28.5 mmol/L Normal 22.0-30.0 [facility] Comment on above: Performed By: #### T SH, FT3, BMP, CRP ####[facility] [address] [place] [address]Dr. Timo Mckenna Creatinine [Mass/Vol] 0.97 mg/dL Normal 0.66-1.25 [facility] Comment on above: Performed By: #### T SH, FT3, BMP, CRP ####[facility] [address] [place] [address]Dr. Timo Mckenna EGFR-AF ARGENTINE >60 Normal >=60 [facility] Comment on above: Performed By: #### T SH, FT3, BMP, CRP ####[facility] [address] [place] [address]Dr. Timo Mckenna EGFR-NON AF ARGENTINE >60 Normal >=60 [facility] Comment on above: Performed By: #### T SH, FT3, BMP, CRP ####[facility] [address] [place] [address]Dr. Timo Bala Glucose [Mass/Vol] 112 mg/dL Critically high 74-106 [facility] Comment on above: Performed By: #### T SH, FT3, BMP, CRP ####[facility] [address] [place] [address]Dr. Timo Mckenna Potassium [Moles/Vol] 4.4 mmol/L Normal 3.4-5.0 [facility] Comment on above: Performed By: #### T SH, FT3, BMP, CRP ####[facility] [address] [place] [address]Dr. Timo Bala Sodium [Moles/Vol] 142 mmol/L Normal 137-145 [facility] Comment on above: Performed By: #### T SH, FT3, BMP, CRP ####[facility] [address] [place] [address]Dr. Timo Mckenna Urea nitrogen [Mass/Vol] 18.0 mg/dL Normal 7.0-18.0 [facility] Comment on above: Performed By: #### T SH, FT3, BMP, CRP ####[facility] [address] [place] [address]Dr. Taramadai Bala Urea nitrogen/Creatinine [Mass ratio] 18.6 mg/mg Normal [facility] Comment on above: Performed By: #### T SH, FT3, BMP, CRP ####[facility] [address] [place] [address]Dr. Timo Mckenna SED RATE PASADENAERGRENon 2021 SED RATE 6 mm/hr Normal <=20 [facility] Comment on above: Performed By: #### S EDR #### [facility] [address] [address] [address] Timo Mckenna TSHon 02-09-2022 TSH 1.346 uIU/mL Normal 0.470-4.680 [facility] Comment on above: Performed By: #### T SH, FT3, BMP, CRP ####[facility] [address] [place], [place] [address]BvBan Timo Mckenna TSH RANGE SEE BELOW Normal [facility] Comment on above: Result Comment: <0.3 4 UIU/ml HYPERTHYROID 0.34-5.60 UIU/ml EUTHYROID >5.60 UIU/ml HYPOTHYROID Performed By: #### T SH, FT3, BMP, CRP ####[facility] [address] [place], [place] [address]Tu. Timo Bala Vital Signs Date Time Vital Sign Value Performing Clinician Faci lity 04-22-2024 15:51-0400 Blood Pressure Location Miguel Benjaminanthony [facility] 04-22-2024 15:51-0400 Diastolic blood pressure 84 mm[Hg] Miguel Benjaminofferson [facility] 04-22-2024 15:51-0400 Heart rate 83 /min Miguel Benjaminofferson [facility] 04-22-2024 15:51-0400 SaO2% (BldA) [Mass fraction] 95 % Miguel Souravofferson [facility] 04-22-2024 15:51-0400 Systolic blood pressure 118 mm[Hg] Miguel Benjaminofferson [facility] 01-24-2024 11:32-0500 Diastolic blood pressure 80 mm[Hg] Miguel Benjaminofferson [facility] 01-24-2024 11:32-0500 Heart rate 76 /min Miguel Benjaminofferson [facility] 01-24-2024 11:32-0500 SaO2% (BldA) [Mass fraction] 94 % Miguel Benjaminofferson [facility] 01-24-2024 11:32-0500 Systolic blood pressure 130 mm[Hg] Miguel Benjaminofferson [facility] 03-08-2023 11:41-0400 Diastolic blood pressure 68 mm[Hg] MD Abbi Dempsey Work Phone: [facility] 03-08-2023 11:41-0400 Heart rate 64 /min MD Abbi Dempsey Work Phone: [facility] 03-08-2023 11:41-0400 Respiratory rate 16 /min MD Abbi Dempsey Work Phone: [facility] 03-08-2023 11:41-0400 SaO2% (BldA) [Mass fraction] 97 % MD Abbi Dempsey Work Phone: [facility] 03-08-2023 11:41-0400 Systolic blood pressure 120 mm[Hg] MD Abbi Dempsey Work Phone: [facility] 03-08-2023 10:00-0400 Body height 193.04 cm MD Abbi Dempsey Work Phone: [facility] 03-08-2023 10:00-0400 Body temperature 98.5 [degF] MD Abbi Dempsey Work Phone: [facility] 03-08-2023 10:00-0400 Body weight 124.73 kg MD Abbi Dempsey Work Phone: [facility] Encounters Encounter Date Encounter Type Care Provider Facility Start: 10-12-2024 End: 10-12-2024 ambulatory Zach Hannah Facility:[facility] [place] Start: 08-03-2024 End: 08-03-2024 Lab Drop off Zach Hannah [facility] Start: 08-03-2024 End: 08-03-2024 ambulatory Zach Hannah Facility:[facility] [place] Start: 06-30-2024 End: 06-30-2024 ambulatory MICHELLE POOL Not Available Start: 04-22-2024 End: 04-22-2024 ambulatory XXXX NONE Facility:[facility] Start: 04-22-2024 End: 04-22-2024 Patient encounter procedure Miguel Wells [facility] Start: 02-12-2024 End: 05-13-2024 ambulatory Miguel Wells Facility:[facility] Start: 02-12-2024 End: 05-13-2024 Recurring Miguel Wells [facility] Start: 01-28-2024 End: 01-28-2024 ambulatory MICHELLE CHICASLAURA Not Available Start: 01-27-2024 End: 01-27-2024 ambulatory Zach Hannah Facility:[facility] [place] Start: 01-24-2024 End: 01-24-2024 ambulatory Zach Hannah Facility:[facility] Start: 01-24-2024 End: 01-24-2024 Patient encounter procedure Miguel Wells [facility] Start: 12-10-2023 End: 12-10-2023 ambulatory Nina Lerma Other [facility] Other Start: 12-10-2023 Office outpatient ne w 30 minutes Nina Lerma [facility] Start: 10-24-2023 End: 10-24-2023 ambulatory Zach Hannah Facility: [facility] [place] Start: 08-29-2023 ambulatory Zach Hannah Facility:[facility] Start: 08-14-2023 End: 08-14-2023 ambulatory Zach Hannah Facility:[facility] Start: 04-05-2023 End: 04-05-2023 Patient encounter procedure Zach Hannah [facility] Start: 03-26-2023 End: 03-26-2023 Lab Drop off Zach Hannah [facility] Start: 03-08-2023 End: 03-08-2023 ambulatory Ortega Cabrera Facility:[facility] Start: 03-08-2023 End: 03-08-2023 Admission to same day surgery center MD Abbi Dempsey Work Phone: [facility] Work Phone: Start: 03-08-2023 End: 03-08-2023 ambulatory MD Abbi Dempsey Work Phone: [facility] Work Phone: Start: 09-19-2022 End: 09-20-2022 ambulatory [...] Date Care Activity Detail Author Start: 03-08-2023 [facility] Immunizations Immunization Date Immunization Notes Care Provider [facility] 10-24-2023 influenza, injectable, quadrivalent, preservative free Miguel Wells [facility] 11-06-2022 SARS-CoV-2 (COVID-19 ) [id number] Zach Hannah [facility] Comment on above: Result Comment: 2022: [id number] 10-25-2022 influenza virus vaccine, unspecified formulation Zachbhavik Hannah [facility] 10-24-2021 influenza virus vaccine, unspecified formulation Zach Hannah [facility] 10-17-2021 COVID-19 mRNA Comirnatblanca (Pfizer) MD Abbi Dempsey Work Phone: [facility] Comment on above: Result Comment: 2022: [id number] 05-29-2021 COVID-19 mRNA Comirrandall (Pfizer) MD Abbi Dempsey Work Phone: [facility] 02-27-2021 SARS-CoV-2 (COVID-19 ) mRNA BNT-162b2 vax Zach Camden [facility] 02-06-2021 COVID-19 mRNA Comirnatblanca (Pfizer) MD Abbi Dempsey Work Phone: [facility] 08-08-2020 influenza virus vaccine, unspecified formulation Zachbhavik Hannah [facility] 09-10-2019 influenza virus vaccine, unspecified formulation Zach Hannah [facility] 08-30-2018 influenza virus vaccine, unspecified formulation Zachbhavik Hannah [facility] 09-25-2016 influenza virus vaccine, unspecified formulation Zachbhavik Hannah [facility] 10-10-2013 influenza virus vaccine, unspecified formulation Zach Hannah [facility] Payers Date Payer Category Payer Self-pay [id number] 1970 Unknown [id number] 2.16.84 [id number] 1970 Unknown [id number] 2.16.84 0.1.867648.3.579.2.593 1970 Unknown [id number] 2.16.84 0.1.021449.3.579.2.593 1968 Unknown [id number] 2.16.84 0.1.045033.3.579.2.593 1968 Unknown [id number] 2.16.84 0.1.028972.3.579.2.593 1968 Unknown [id number] 2.16.84 0.1.124369.3.579.2.593 1968 Unknown [id number] 2.16.84 0.1.231218.3.579.2.593 1968 Unknown [id number] 2.16.84 0.1.196299.3.579.2.593 1968 Unknown [id number] 2.16.84 0.1.527907.3.579.2.1259 1968 Unknown [id number] 2.16.84 0.1.859530.3.579.2.1259 1970 Unknown [id number] 2.16.8 40.1.883211.3.579.2.727 1968 Unknown [id number] 2.16.8 40.1.447485.3.579.2.72 1968 Unknown [id number] 2.16.8 40.1.698450.3.579.2.727 1968 Unknown [id number] 2.16.8 40.1.883773.3.579.2.727 1968 Unknown [id number] 2.16.8 40.1.004423.3.579.2.727 1968 Unknown [id number] 2.16.8 40.1.112501.3.579.2.727 1968 Unknown [id number] 2.16.8 40.1.352190.3.579.2.727 1968 Unknown [id number] 2.16.8 40.1.466234.3.579.2.727 1968 Unknown [id number] 2.16.8 40.1.589529.3.579.2.727 1968 Unknown [id number] 2.16.8 40.1.532101.3.579.2.727 1959 Unknown [id number] Unknown [id number] 2.16.8 40.1.174830.3.579.2.531 Social History Date Type Detail Facility Start: 03-08-2023 End: 08-03-2024 Tobacco smoking status SCIS Never smoked tobacco (finding) [facility] Start: 1970 Sex Assigned At Male [facility] Tobacco smoking status Smokeless tobacco user within last 30 days [facility] Sex Assigned At Male [facility] Goals Date Patient Goal Desired Activity /State Functional Status Date Assessment Result Facility 04-22-2024 Functional Status No [facility] 01-24-2024 Functional Status No [facility] Clinical Notes 03-08-2023 to 10-12-2024 Note Date & Type Note Facility 10-12-2024 Note Patient Education Nutrition BMI for Adults Body mass index (BMI) is a number found using a person's weight and height. BMI can help tell how much of a person's weight is made up of fat. BMI does not measure body fat directly. It is used instead of tests that directly measure body fat, which can be difficult and expensive. What are BMI measurements used for? BMI is useful to: ??? Find out if your weight puts you at higher risk for medical problems. ??? Help recommend changes, such as in diet and exercise. This can help you reach a healthy weight. BMI screening can be done again to see if these changes are working. How is BMI calculated? Your height and weight are measured. The BMI is found from those numbers. This can be done with U.S. or metric measurements. Note that charts and online BMI calculators are available to help you find your BMI quickly and easily without doing these calculations. To calculate your BMI in U.S. measurements: 1. Measure your weight in pounds (lb). 2. Multiply the number of pounds by 703. ??? So, for an adult who weighs 150 lb, multiply that number by 703: 150 x 703, which equals 105,450. 3. Measure your height in inches. Then multiply that number by itself to get a measurement called inches squared. ??? So, for an adult who is 70 inches tall, the inches squared measurement is 70 inches x 70 inches, which equals 4,900 inches squared. 4. Divide the total from step 2 (number of lb x 703) by the total from step 3 (inches squared): 105,450 ? 4,900 = 21.5. This is your BMI. To calculate your BMI in metric measurements: 1. Measure your weight in kilograms (kg). ??? For this example, the weight is 70 kg. 2. Measure your height in meters (m). Then multiply that number by itself to get a measurement called meters squared. ??? So, for an adult who is 1.75 m tall, the meters squared measurement is 1.75 m x 1.75 m, which equals 3.1 meters squared. 3. Divide the number of kilograms (your weight) by the meters squared number. In this example: 70 ? 3.1 = 22.6. This is your BMI. What do the results mean? BMI charts are used to see if you are underweight, normal weight, overweight, or obese. The following guidelines will be used: ??? Underweight: BMI less than 18.5. ??? Normal weight: BMI between 18.5 and 24.9. ??? Overweight: BMI between 25 and 29.9. ??? Obese: BMI of 30 or above. BMI is a tool and cannot diagnose a condition. Talk with your health care provider about what your BMI means for you. Keep these notes in mind: ??? Weight includes fat and muscle. Someone with a muscular build, such as an athlete, may have a BMI that is higher than 24.9. In cases like these, BMI is not a correct measure of body fat. ??? If you have a BMI of 25 or higher, your provider may need to do more testing to find out if excess body fat is the cause. ??? BMI is measured the same way for males and females. Females usually have more body fat than males of the same height and weight. Where to find more information For more information about BMI, including tools to quickly find your BMI, go to: ??? Centers for Disease Control and Prevention: cdc.gov ??? [employer]: heart.org ??? National Heart, Lung, and Blood [place]: nhlbi.nih.gov This information is not intended to replace advice given to you by your health care provider. Make sure you discuss any questions you have with your health care provider. Document Revised: 08/01/2023 Document Reviewed: 07/25/2023 [employer] Patient Education ? 2023 [employer]. [facility] 08-03-2024 Note Patient Education Orthopedics Acute Knee [...] under your knee. General instructions ? Take xyqa-zas-aorzotb and prescription medicines only as told by [...] provider. Document Revised: 04/25/2021 Document Reviewed: 04/26/2021 [employer] Patient Education ? 2023 [employer] [facility] 02-17-2024 Note Echocardiology Procedure Exam Date/Time Accession # Ordering Dr. Garsia Transthoracic 02/12/2024 11:54 EDT [id number] Miguel Wells MD CPT code [id number] Reason for Exam (Echo Transthoracic Complete) Abnormal result of other cardiovascular function study;Other (please specify) Report Version: 1 Study ID: [id number] [facility] [address] [place] [address] Adult Echocardiogram Report Name: NICHOLE BARILLAS Study Date: 02/12/2024, 11: 07 AM Patient Location: [facility] : 1970 (MM/DD/YYYY) Gender: Male Age: 53 [...] REPORT Dictated: 02/12/2024 11:07 am Miguel Wells MD Signed (Electronic Signature): 02/17/2024 6:44 am Signed by: Miguel Wells MD Transcribed by: [facility] Technologist: MAGGIE [facility] 12-10-2023 Evaluation note Encounter Date Diagnosis Assessment [...] and tingle for hours after this injection. [facility] Other 11-30-2023 Evaluation + Plan note Future Scheduled Tests Radiology* ECG Stress Exercise 10/24/23 [facility]14-2023 [facility] Future Appointments Appointment Date:04/25/2023 07:40:00 AM Scheduled Provider:Zach Hannah MD Location:[facility] Appointment Type: Open Diagnostic Tests Pending * Testosterone F&T 03/26/23 Future Scheduled Tests Radiology* US Extremity Non-Vascular Limited Right 03/25/23 [facility] Future Appointments Appointment Date:04/25/2023 07:40:00 AM Scheduled Provider:Zach Hannah MD Location:[facility] Appointment Type: Open [facility] Future Appointments Appointment Date:01/27/2024 07:15:00 AM Scheduled Provider:Zach Hannah MD Location:[facility] Appointment Type: Open Appointment Date:04/22/2024 03:45:00 PM Scheduled Provider:Miguel Wells MD Location[facility] Appointment Type:Cardiology Follow Up (FT) Future Scheduled Tests Radiology* Echo Transthoracic Complete 01/24/24 * NM Myocardial Spect Rest/Stress 2 Day 01/24/24 * ECG Stress Exercise 10/24/23 [facility] Future Appointments Appointment Date:08/03/2024 07:15:00 AM Scheduled Provider:Zach Hannah MD Location:[facility] Appointment Type: Open Future Scheduled Tests Radiology* ECG Stress Exercise 10/24/23 [facility] noteNo assessment information available [facility] Work Phone: History and physical note Author Ortega Cabrera [facility] March 08, 2023 10:57am Note Date/Time March 08, 2023 10: 57am [facility] [address] [place] [address] Gastroenterology H&P Signed Patient: Nichole Barillas MR#: [id number] : 1970 Acct:[id number] Age/Sex: 52 / M Adm Date: 3 Loc: Room: Type: [facility] Attending Dr: Ortega Cabrera MD Copies to: [...] Cabrera MD Documented By: Ortega Cabrera MD 03/08/23 105 Signed By: <Electronically signed by Ortega Cabrera MD> 03/08/[address] 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 for [...] years. -Follow up with PCP. -Office number [phone].[facility] Work Phone: Hospital Discharge instructions No data available for this section [facility] No data available for this section [facility] Summary Purpose Family History No Family History Records Found Relationship Condition Age at Onset Recorded Date/T freya Not Specified No pertinent family history Unknown Advance Directives No Advanced Directives Records Found Advance Directive Response Recorded Date/ Time Advance Directives No February 21, 022 7:32am Chief Complaint and Reason for Visit Chief Complaint Screening Additional Source Comments (unrecognized sect ion and content) No Status Records FoundNo Status Records FoundNo Status Records FoundNo Status Records FoundNo Status Records FoundNo Status Records FoundNo Status Records FoundNo Status Records FoundNo Status Records Found INFORMATION SOURCE (unrecogn ized section and content) DATE CREATED AUTHOR 09/23/2022 [facility] DATE CREATED AUTHOR AUTHOR'S ORGANIZ ATION 03/09/2023 [facility] DATE CREATED AUTHOR AUTHOR'S ORGANIZ ATION 07/03/2024 [facility] DATE CREATED AUTHOR AUTHOR'S ORGANIZ ATION 08/05/2024 [facility] DATE CREATED AUTHOR AUTHOR'S ORGANIZ ATION 10/13/2024 [facility] Care Teams (unrecognized sec tion and content) [...] BE BASED ON THE PRIMARY CLINICAL RECORDS. [employer] [facility]. provides no warranty or guarantee of the accuracy or completeness of information in this document.
--- NOTE | 2024-10-30 07:26 | MR_ITS ---
[address] [address] Patient Name: NICHOLE BARILLAS MRN: [facility]:[id number] date: 1970 Sex: M Assigned Patient Location: [facility] Current Patient Location: Accession/Order Number: [id number] Exam Date: 10/30/2024 10:00 Report Date: 10/31/2024 05:34 At the request of: AGNES CABRERA Procedure: MR shoulder LT wo con EXAMINATION: MR shoulder LT wo con HISTORY: Acute Left Shoulder Pain ; limited range of motion; left shoulder pain for 5 months; no known injury COMPARISON: XR shoulder left 10/12/2024 TECHNIQUE: A variety of imaging planes and parameters were utilized for visualization of suspected pathology. Imaging was performed without or with contrast as indicated by examination type. FINDINGS: ROTATOR CUFF REGION CUFF TENDONS: Marked increased signal intensity in the supraspinatus tendon indicates tendon degeneration and/or tendinitis. No krish tear is seen. CUFF MUSCLES: Normal appearing muscles. DELTOID: Normal. No significant atrophy or tear. LONG BICEPS TENDON: Normal. No abnormal signal, attrition, or tear. LABRUM/BICEPS ANCHOR SUPERIOR: Normal. No visible labral tear or biceps anchor pathology. ANTERIOR/INFERIOR: Normal. No visible tear or attrition. POSTERIOR: Normal. No posterior labrum abnormality. CAPSULE Normal. No visible capsular laxity or thickening. AC JOINT REGION AC JOINT: Mild osteoarthropathy with no significant narrowing of the underlying coracoacromial arch. AC LIGAMENTS: Normal acromioclavicular ligament. CC LIGAMENTS: Normal coracoclavicular ligaments. ACROMION: Mild lateral downsloping. SUBACROMIAL BURSA: Trace amount of fluid within the subacromial-subdeltoid bursa. HYALINE CARTILAGE: Normal. No visible cartilage narrowing or focal defect. OTHER BONES: Normal proximal humerus, glenoid, and coracoid. OTHER OBSERVATIONS: Negative. No other significant findings or glenohumeral effusion. MR/MR shoulder LT wo con IMPRESSION: 1. Moderate strain/tendinitis of the supraspinous tendon. No appreciable tear. 2. Mild-moderate degenerative changes of the chronic lacunar joint. 3. Slight lateral downsloping acromion process. Electronically authenticated by: AGNES GERONIMO Date: 10/31/2024 05:34
--- NOTE | 2024-10-30 07:26 | XR_ITS ---
The [address] [address] Patient Name: NICHOLE BARILLAS MRN: [id number] date: 1970 Sex: M Assigned Patient Location: RAD Current Patient Location: RAD Accession/Order Number: [id number] Exam Date: 10/30/2024 07:35 Report Date: 10/30/2024 08:07 At the request of: AGNES CABRERA Procedure: XR foreign body eye ALEXA EXAMINATION: XR foreign body eye ALEXA HISTORY: Foreign Body Eye COMPARISON: No relevant comparison available. FINDINGS: ORBITS: Negative for a metallic foreign body. OTHER: Negative. XR/XR foreign body eye ALEXA IMPRESSION: 1. No metallic foreign body within the orbits. Electronically authenticated by: AGNES GERONIMO Date: 10/30/2024 08:07
== END 2024-10-30 07:23 | disposition home or self-care (01) ==
LOC: RAD 07:22
PROVIDERS: PCP Family Medicine; Visit Provider Orthopaedic Surgery
DX: M25.512 Pain in left shoulder (principal); S00.259A Superficial foreign body of unspecified eyelid and periocular area, initial encounter
CPT/HCPCS: 70030; 73221